=== PATIENT | female | born 1960 | race Caucasian/White ===

== ENCOUNTER → 2016-07-27 | Outpatient (CLI) | payer BC ==
--- NOTE | 2016-07-27 09:09 | CT ---
EXAMINATION TYPE: CT sinus wo con DATE OF EXAM: 07/27/2016 9:03 AM COMPARISON: NONE HISTORY: sinusitis CT DLP: 603.0 mGycm Automated exposure control for dose reduction was used. FINDINGS: Visualized intracranial structures are unremarkable. Soft tissues appear normal. There is been a previous Garcia-Judah procedure on the left. There is minimal mucoperiosteal thickeni ng involving the posterior aspect of the right maxillary sinus. There has been a previous partial thy roidectomy. There is some residual mucosal thickening in the ethmoid sinuses. Both infundibula have been iatrogenically widened. There are both patent. IMPRESSION: 1. POSTSURGICAL CHANGE. 2. MINIMAL MUCOPERIOSTEAL THICKENING INVOLVING THE RIGHT MAXILLARY AND RESIDUAL ETHMOID AIR CELLS.
== END | disposition home or self-care (01) ==
LOC: RADCTMAIN 08:43
PROVIDERS: ATTEND Nurse Practitioner Family
DX: J34.89 Other specified disorders of nose and nasal sinuses (principal); J32.9 Chronic sinusitis, unspecified; Z98.890 Other specified postprocedural states
CPT/HCPCS: 70486

== ENCOUNTER → 2016-10-29 | Outpatient (CLI) | payer BC ==
--- NOTE | 2016-10-30 12:00 | MM ---
Reason for exam: screening (asymptomatic). Last mammogram was performed 1 year ago. History: Patient is postmenopausal. Family history of breast cancer in paternal grandmother. Benign ultrasound-guided core biopsy of the left breast, September 01, 2004. Benign ultrasound-guided core biopsy of the left breast, September 01, 2004. Taking estrogen beginning at age 52. Physical Findings: A clinical breast exam by your physician is recommended on an annual basis and results should be correlated with mammographic findings. MG 3D Screening Mammo W/Cad Bilateral CC and MLO view(s) were taken. Prior study comparison: October 15, 2015, bilateral MG 3d screening mammo w/cad. August 21, 2014, bilateral MG screening mammo w CAD. The breast tissue is extremely dense which could obscure a lesion on mammography. There is no discrete abnormality. No significant changes when compared with prior studies. ASSESSMENT: Negative, BI-RAD 1 RECOMMENDATION: Routine screening mammogram of both breasts in 1 year.
== END | disposition home or self-care (01) ==
LOC: RADMAMWWP 16:55
PROVIDERS: ATTEND Obstetrics & Gynecology
DX: Z12.31 Encounter for screening mammogram for malignant neoplasm of breast (principal)
CPT/HCPCS: 77063; G0202

== ENCOUNTER → 2017-08-14 | Outpatient (CLI) | payer BC ==
[2017-08-14 09:53] LABS: ALT 24 U/L (9-52); AST 18 U/L (14-36); Albumin 3.8 g/dL (3.5-5.0); Alkaline Phosphatase 76 U/L (38-126); Anion Gap 10 mmol/L; Blood Urea Nitrogen 14 mg/dL (7-17); Calcium 9.3 mg/dL (8.4-10.2); Carbon Dioxide 27 mmol/L (22-30); Chloride 104 mmol/L (98-107); Cholesterol 213 mg/dL (<200); Glucose 88 mg/dL (74-99); HDL Cholesterol 63 mg/dL (40-60); LDL Cholesterol,Calculated 119 mg/dL (0-99); Potassium 4.3 mmol/L (3.5-5.1); Sodium 141 mmol/L (137-145); Total Bilirubin 0.4 mg/dL (0.2-1.3); Total Protein 6.5 g/dL (6.3-8.2); Triglycerides 153 mg/dL (<150)
[2017-08-14 10:09] LABS: T4, Free (Free Thyroxine) 0.85 ng/dL (0.78-2.19)
[2017-08-14 10:10] LABS: Basophils % (A) 1 %; Eosinophils # (A) 0.3 k/uL (0-0.7); Eosinophils % (A) 6 %; HCT 40.3 % (34.0-46.0); HGB 13.1 gm/dL (11.4-16.0); Lymphocytes # (A) 1.4 k/uL (1.0-4.8); Lymphocytes % (A) 26 %; MCH 28.3 pg (25.0-35.0); MCHC 32.6 g/dL (31.0-37.0); MCV 86.6 fL (80.0-100.0); Mean Platelet Volume 7.6; Monocytes # (A) 0.3 k/uL (0-1.0); Monocytes % (A) 5 %; Neutrophils # (A) 3.2 k/uL (1.3-7.7); Neutrophils % (A) 60 %; Platelet Count 281 k/uL (150-450); RBC 4.65 m/uL (3.80-5.40); RDW 12.1 % (11.5-15.5); WBC 5.3 k/uL (3.8-10.6)
== END ==
LOC: LABWHC1 08:55
PROVIDERS: ATTEND Internal Medicine
DX: E78.5 Hyperlipidemia, unspecified (principal)
CPT/HCPCS: 36415; 80053; 80061; 84439; 84443; 85025

== ENCOUNTER → 2017-12-02 | Outpatient (CLI) | payer BC ==
--- NOTE | 2017-12-06 13:00 | MM ---
Reason for exam: screening (asymptomatic). Last mammogram was performed 1 year and 1 month ago. History: Patient is postmenopausal. Family history of breast cancer in paternal grandmother. Benign ultrasound-guided core biopsy of the left breast, September 01, 2004. Benign ultrasound-guided core biopsy of the left breast, September 01, 2004. Taking estrogen for 6 years beginning at age 52. Physical Findings: A clinical breast exam by your physician is recommended on an annual basis and results should be correlated with mammographic findings. MG 3D Screening Mammo W/Cad Bilateral CC and MLO view(s) were taken. Prior study comparison: October 29, 2016, bilateral MG 3d screening mammo w/cad. October 15, 2015, bilateral MG 3d screening mammo w/cad. The breast tissue is heterogeneously dense. This may lower the sensitivity of mammography. There are benign appearing round oval circumscribed multiple bilateral masses waxing and waning in size over multiple prior exams. Mammographically most compatible with cysts. There are new 2mm group of left breast calcifications at middle depth lower inner quadrant. ASSESSMENT: Incomplete: need additional imaging evaluation, BI-RAD 0 RECOMMENDATION: Special view mammogram of the left breast. If lesion persists on supplemental views, image directed ultrasound is recommended. [facility] will attempt to contact patient to return for supplemental views and ultrasound if indicated.
== END | disposition home or self-care (01) ==
LOC: RADMAMWWP 17:06
PROVIDERS: ATTEND Family Medicine
DX: Z12.31 Encounter for screening mammogram for malignant neoplasm of breast (principal); Z80.3 Family history of malignant neoplasm of breast
CPT/HCPCS: 77063; 77067

== ENCOUNTER → 2017-12-09 | Outpatient (CLI) | payer BC ==
--- NOTE | 2017-12-09 09:46 | MM ---
Reason for exam: additional evaluation requested from abnormal screening. Last mammogram was performed less than 1 month ago. History: Patient is postmenopausal. Family history of breast cancer in paternal grandmother. Benign ultrasound-guided core biopsy of the left breast, September 01, 2004. Benign ultrasound-guided core biopsy of the left breast, September 01, 2004. Taking estrogen for 6 years beginning at age 52. Physical Findings: Nurse did not find any significant physical abnormalities on exam. MG Work Up Mamm w CAD LT Spot compression CC, spot compression MLO, and ML view(s) were taken of the left breast. Prior study comparison: October 29, 2016, bilateral MG 3d screening mammo w/cad. October 15, 2015, bilateral MG 3d screening mammo w/cad. There are scattered fibroglandular densities. The posterior upper outer quadrant focal asymmetry disperses on additional views. These results were verbally communicated with the patient and result sheet given to the patient on 12/08/17. ASSESSMENT: Negative, BI-RAD 1 RECOMMENDATION: Return to routine screening mammogram schedule for both breasts.
--- NOTE | 2017-12-14 08:41 | MM ---
Reason for exam: additional evaluation requested from abnormal screening. Last mammogram was performed 1 year and 1 month ago. History: Patient is postmenopausal. Family history of breast cancer in paternal grandmother. Benign ultrasound-guided core biopsy of the left breast, September 01, 2004. Benign ultrasound-guided core biopsy of the left breast, September 01, 2004. Taking estrogen for 6 years beginning at age 52. Physical Findings: Nurse did not find any significant physical abnormalities on exam. MG Work Up Mamm w CAD LT ML view(s) were taken of the left breast. Prior study comparison: October 29, 2016, bilateral MG 3d screening mammo w/cad. October 15, 2015, bilateral MG 3d screening mammo w/cad. August 21, 2014, bilateral MG screening mammo w CAD. There is persistant grouped amorphous hetergeneous calcifications in the lower middle left breast. These results were verbally communicated with the patient and result sheet given to the patient on 12/09/17. ASSESSMENT: Suspicious, BI-RAD 4 RECOMMENDATION: Stereotactic core biopsy of the left breast. Called Dr Collins with mammographic findings and has scheduled an appointment for 01/12/18 the patient for consultation at 3:50pm with Dr. Banegas. PRELIMINARY REPORT CALLED AND FAXED TO DR. BANEGAS ON 12/09/17 Left breast Stereotactic core biopsy scedualed for 12/19/17 at 10:00am at [facility].
== END | disposition home or self-care (01) ==
LOC: RADMAMWWP 07:00
PROVIDERS: ATTEND Family Medicine
DX: R92.8 Other abnormal and inconclusive findings on diagnostic imaging of breast (principal)
CPT/HCPCS: 77065

== ENCOUNTER → 2017-12-16 | Day surgery (SDC) | payer BC ==
[2017-12-16 09:35] VITALS: BMI 27.3
[2017-12-16 11:46] VITALS: BP 124/70; PULSE 67; RESP 16; TEMP 98
--- NOTE | 2017-12-16 14:55 | MM ---
EXAMINATION TYPE: MG stereo VAD BX LT DATE OF EXAM: 12/16/2017 COMPARISON: Exams dating back to 12/02/2017 CLINICAL HISTORY: Left breast calcifications for which stereotactic guided biopsy was recommended. TECHNIQUE: Stereotactic guided core biopsy of left breast. FINDINGS: The procedure of stereotactic guided core biopsy was explained to the patient. Benefits, a lternatives, and risks were discussed. An informed consent was then obtained. Preprocedural timeout was performed. [facility]. Shortness pathway was medial to lateral approach. Afte r skeleton. Images were obtained localizing the calcifications the patient was anesthetized with lido jayla without epinephrine at the skin surface and deeper subcutaneous tissues. The needle was advance d to the appropriate depth and prefire images were obtained. After firing 10 cc of lidocaine with epi nephrine was utilized to anesthetize the site of biopsy. Subsequently a vacuum assisted biopsy gun wa s used to obtain 9 core samples. Postprocedural biopsy marker was placed. The patient tolerated the procedure well without any immediate complication. The patient was kept in the radiology department for short stay after the procedure and then discharged home in stable condi tion. Targeted calcifications are identified in specimen mammogram. Post biopsy mammogram shows the biopsy marker to appear in satisfactory position relative to the targeted area of concern on the pre procedure images. IMPRESSION: SUCCESSFUL, UNCOMPLICATED STEREOTACTIC GUIDED CORE BIOPSY OF A 5 MM GROUP OF CALCIFICATIONS WITHIN TH E LOWER QUADRANT OF THE LEFT BREAST, POSSIBLY FAT NECROSIS, FULL PATHOLOGY RESULTS TO FOLLOW.
== END ==
LOC: RADMAMWWP 09:06
PROVIDERS: ATTEND Surgery
DX: N60.22 Fibroadenosis of left breast (principal); R92.8 Other abnormal and inconclusive findings on diagnostic imaging of breast; R92.1 Mammographic calcification found on diagnostic imaging of breast; Z88.5 Allergy status to narcotic agent
CPT/HCPCS: 88305; 19081; A4648; J2001

== ENCOUNTER → 2018-07-15 | Outpatient (CLI) | payer BC ==
--- NOTE | 2018-07-15 10:16 | MM ---
Reason for exam: follow-up at short interval from prior study. Last mammogram was performed 7 months ago. History: Patient is postmenopausal. Family history of breast cancer in paternal grandmother. Benign MG stereo VAD BX LT of the left breast, December 16, 2017. Benign ultrasound-guided core biopsy of the left breast, September 01, 2004. Benign ultrasound-guided core biopsy of the left breast, September 01, 2004. Taking estrogen for 6 years beginning at age 52. Physical Findings: Nurse Summary: 1cm nodule in the left breast at 6 o'clock (nurse dw). MG 3D Diag Mammo W/Cad LT CC and MLO view(s) were taken of the left breast. Prior study comparison: December 14, 2017, left breast MG work up mamm w CAD LT. December 02, 2017, bilateral MG 3d screening mammo w/cad. The breast tissue is heterogeneously dense. This may lower the sensitivity of mammography. No significant new findings when compared with previous films. These results were verbally communicated with the patient and result sheet given to the patient on 07/15/18. ASSESSMENT: Incomplete: need additional imaging evaluation, BI-RAD 0 RECOMMENDATION: Ultrasound of the left breast.
--- NOTE | 2018-07-15 10:17 | USB ---
Reason for exam: additional evaluation requested from abnormal screening. History: Patient is postmenopausal. Family history of breast cancer in paternal grandmother. Benign MG stereo VAD BX LT of the left breast, December 16, 2017. Benign ultrasound-guided core biopsy of the left breast, September 01, 2004. Benign ultrasound-guided core biopsy of the left breast, September 01, 2004. Taking estrogen for 6 years beginning at age 52. US Breast Limited LT Left limited breast ultrasound including focal area of concern, retroareolar and axilla demonstrates a 1.1 x 1.2 x 0.8cm cystic lesion at 6 o'clock. These results were verbally communicated with the patient and result sheet given to the patient on 07/15/18. ASSESSMENT: Benign, BI-RAD 2 RECOMMENDATION: Return to routine screening mammogram schedule for both breasts.
== END | disposition home or self-care (01) ==
LOC: RADMAMWWP 08:50
PROVIDERS: ATTEND Surgery
DX: R92.8 Other abnormal and inconclusive findings on diagnostic imaging of breast (principal)
CPT/HCPCS: 77061; 77065

== ENCOUNTER → 2018-12-20 | Outpatient (CLI) | payer BC ==
--- NOTE | 2018-12-22 09:51 | MM ---
Reason for exam: screening (asymptomatic). Last mammogram was performed 5 months ago. History: Patient is postmenopausal. Family history of breast cancer in paternal grandmother. Benign MG stereo VAD BX LT of the left breast, December 16, 2017. Benign ultrasound-guided core biopsy of the left breast, September 01, 2004. Benign ultrasound-guided core biopsy of the left breast, September 01, 2004. Taking estrogen for 6 years beginning at age 52. Physical Findings: A clinical breast exam by your physician is recommended on an annual basis and results should be correlated with mammographic findings. MG 3D Screening Mammo W/Cad Bilateral CC and MLO view(s) were taken. Prior study comparison: July 15, 2018, left breast MG 3d diag mammo w/cad LT. December 14, 2017, left breast MG work up mamm w CAD LT. The breast tissue is extremely dense which could obscure a lesion on mammography. Previous mammotome biopsy in the left breast. ASSESSMENT: Incomplete: need additional imaging evaluation, BI-RAD 0 RECOMMENDATION: Ultrasound of the left breast. [facility] will attempt to contact patient to return for ultrasound.
== END | disposition home or self-care (01) ==
LOC: RADMAMWWP 17:00
PROVIDERS: ATTEND Obstetrics & Gynecology
DX: Z12.31 Encounter for screening mammogram for malignant neoplasm of breast (principal); Z80.3 Family history of malignant neoplasm of breast; Z78.0 Asymptomatic menopausal state
CPT/HCPCS: 77063; 77067

== ENCOUNTER → 2018-12-29 | Outpatient (CLI) | payer BC ==
--- NOTE | 2018-12-29 13:25 | USB ---
Reason for exam: additional evaluation requested from abnormal screening. History: Patient is postmenopausal. Family history of breast cancer in paternal grandmother. Benign MG stereo VAD BX LT of the left breast, December 16, 2017. Benign ultrasound-guided core biopsy of the left breast, September 01, 2004. Benign ultrasound-guided core biopsy of the left breast, September 01, 2004. Taking estrogen for 6 years beginning at age 52. Physical Findings: Nurse did not find any significant physical abnormalities on exam. US Breast Workup LT Left complete breast ultrasound includes all four quadrants, the retroareolar region and axilla. Finding demonstrates a 0.8 x 0.6 x 1.0cm cystic cluster at 3 o'clock, a 0.7 x 0.4 x 0.5cm cystic cluster at 4 o'clock, a 0.7 x 0.4 x 0.6cm cystic lesion at 6 o'clock, a 0.6 x 0.3 x 0.5cm mixed, complicated cyst at 9 o'clock and duct ectasia at the posterior nipple. These results were verbally communicated with the patient and result sheet given to the patient on 12/29/18. ASSESSMENT: Incomplete: need additional imaging evaluation, BI-RAD 0 RECOMMENDATION: Special view mammogram of the left breast. (magnification views, lateral)
--- NOTE | 2018-12-29 13:27 | MM ---
Reason for exam: additional evaluation requested from abnormal screening. Last mammogram was performed less than 1 month ago. History: Patient is postmenopausal. Family history of breast cancer in paternal grandmother. Benign MG stereo VAD BX LT of the left breast, December 16, 2017. Benign ultrasound-guided core biopsy of the left breast, September 01, 2004. Benign ultrasound-guided core biopsy of the left breast, September 01, 2004. Taking estrogen for 6 years beginning at age 52. MG 3D Work Up W/Cad LT CC with magnification, LM with magnification, and LM view(s) were taken of the left breast. Prior study comparison: December 20, 2018, bilateral MG 3d screening mammo w/cad. July 15, 2018, left breast MG 3d diag mammo w/cad LT. The breast tissue is heterogeneously dense. This may lower the sensitivity of mammography. There are two adjacent calcifications not yet a true group, one of which is new. These are seen in the left upper inner quadrant, 6cm from nipple spanning 5mm. 6 month follow up recommended. These results were verbally communicated with the patient and result sheet given to the patient on 12/29/18. ASSESSMENT: Probably benign, BI-RAD 3 RECOMMENDATION: Follow-up diagnostic mammogram of the left breast in 6 months.
== END | disposition home or self-care (01) ==
LOC: RADUSWWP 10:08
PROVIDERS: ATTEND Obstetrics & Gynecology
DX: R92.8 Other abnormal and inconclusive findings on diagnostic imaging of breast (principal)
CPT/HCPCS: 77061; 77065

== ENCOUNTER → 2019-05-13 | Outpatient (CLI) | payer BC ==
[2019-05-13 08:45] LABS: Basophils # (A) 0.1 k/uL (0-0.2); Basophils % (A) 1 %; Eosinophils # (A) 0.2 k/uL (0-0.7); Eosinophils % (A) 3 %; HCT 41.6 % (34.0-46.0); HGB 13.6 gm/dL (11.4-16.0); Lymphocytes # (A) 1.9 k/uL (1.0-4.8); Lymphocytes % (A) 32 %; MCH 29.2 pg (25.0-35.0); MCHC 32.7 g/dL (31.0-37.0); MCV 89.5 fL (80.0-100.0); Mean Platelet Volume 7.4; Monocytes # (A) 0.3 k/uL (0-1.0); Monocytes % (A) 6 %; Neutrophils # (A) 3.3 k/uL (1.3-7.7); Neutrophils % (A) 56 %; Platelet Count 310 k/uL (150-450); RBC 4.65 m/uL (3.80-5.40); RDW 12.3 % (11.5-15.5); WBC 5.9 k/uL (3.8-10.6)
[2019-05-13 17:49] LABS: African American GFR (CKD) 110.7 (60.0-200.0); Albumin 4.5 g/dL (3.80-4.90); Albumin/Globulin Ratio 2.25 (1.60-3.17); Anion Gap 8.3 mmol/L (4.00-12.00); BUN/Creat Ratio 24.29 Ratio (12.00-20.00); Calcium 9.2 mg/dL (8.7-10.3); Carbon Dioxide 26.7 mmol/L (21.6-31.8); Chol/HDL Ratio 3.24; LDL Cholesterol,Calculated 136.4 mg/dL (0.0-131.0); Non-African American GFR(CKD) 95.5 (60.0-200.0); Total Bilirubin 0.4 mg/dL (0.3-1.2); Total Protein 6.5 g/dL (6.2-8.2); VLDL Calculation 24.6 mg/dL (5.00-40.00)
== END ==
LOC: LABWHC1 08:06
PROVIDERS: ATTEND Internal Medicine
DX: Z00.00 Encounter for general adult medical examination without abnormal findings (principal)
CPT/HCPCS: 36415; 80053; 80061; 84439; 84443; 85025

== ENCOUNTER → 2019-10-02 | Outpatient (CLI) | payer BC ==
--- NOTE | 2019-10-03 10:24 | MM ---
Reason for exam: follow-up at short interval from prior study. Last mammogram was performed 9 months ago. History: Patient is postmenopausal and history of other cancer. Family history of breast cancer in paternal grandmother. Benign MG stereo VAD BX LT of the left breast, December 16, 2017. Benign ultrasound-guided core biopsy of the left breast, September 01, 2004. Benign ultrasound-guided core biopsy of the left breast, September 01, 2004. Taking estrogen for 6 years beginning at age 52. Physical Findings: Nurse did not find any significant physical abnormalities on exam. MG 3D Diag Mammo W/Cad LT CC and MLO view(s) were taken of the left breast. Prior study comparison: December 29, 2018, left breast MG 3d work up w/cad LT. December 20, 2018, bilateral MG 3d screening mammo w/cad. July 15, 2018, left breast MG 3d diag mammo w/cad LT. December 02, 2017, bilateral MG 3d screening mammo w/cad. The breast tissue is heterogeneously dense. This may lower the sensitivity of mammography. Unchanged upper inner quadrant focal asymmetry. Two associated calcifications unchanged for 9 months. Continued short follow up. Due in 3 months for annual exam. These results were verbally communicated with the patient and result sheet given to the patient on 10/02/19. ASSESSMENT: Probably benign, BI-RAD 3 RECOMMENDATION: Follow-up diagnostic mammogram of both breasts in 3 months. (left total 1 year follow up, right annual exam)
== END | disposition home or self-care (01) ==
LOC: RADMAMWWP 09:20
PROVIDERS: ATTEND Obstetrics & Gynecology
DX: R92.8 Other abnormal and inconclusive findings on diagnostic imaging of breast (principal)
CPT/HCPCS: 77061; 77065

== ENCOUNTER 2019-10-12 10:33 | Observation (INO) | payer BC ==
--- NOTE | 2019-10-12 11:03 | ED ---
General Adult HPI - General Chief complaint: Weakness Stated complaint: abn EKG Time Seen by Provider: 10/12/19 10:44 Source: patient, RN notes reviewed, old records reviewed Mode of arrival: wheelchair Limitations: no limitations - History of Present Illness Initial comments: 59 -year-old female presenting with weakness, fatigue, and abnormal EKG. Daisha lemon was seen at urgent care, noted to have a left bundle branch block, no history of previous left bundle branch block. No history of CAD. She is history of hypercholesterolemia. She denies chest pain but states over the past several days she's been fatigued and had bilateral arm heaviness. She states she thought this may have been from her neck and she had seen her chiropractor which did seem to improve her symptoms. She denies diaphoresis. She denies abdominal pain. Denies nausea vomiting or diarrhea. Denies dysuria. Denies fever or chills. - Related Data Home Medications Medication Instructions Recorded Confirmed Fluticasone Nasal [place] [Flonase 1 spray NASAL DAILY 12/14/17 10/12/19 Nasal [place]] Omeprazole 20 mg PO DAILY 12/14/17 10/12/19 Estrogens, Conjugated [Premarin] 0.45 mg PO DAILY 10/12/19 10/12/19 Fexofenadine HCl 180 mg PO DAILY 10/12/19 10/12/19 Naproxen Sodium [Aleve] 220 mg PO BID 10/12/19 10/12/19 Simvastatin [Zocor] 20 mg PO HS 10/12/19 10/12/19 Allergies Allergy/AdvReac Type Severity Reaction Status Date / Time codeine AdvReac Nausea & Verified 10/12/19 11:42 Vomiting Review of Systems ROS Statement: Those systems with pertinent positive or pertinent negative responses have been documented in the HPI. ROS Other: All systems not noted in ROS Statement are negative. Past Medical History Past Medical History: Hyperlipidemia Additional Past Medical History / Comment(s): seasonal allergies History of Any Multi-Drug Resistant Organisms: None Reported Past Surgical History: Hysterectomy Additional Past Surgical History / Comment(s): benign u/s guided core biopsy left breast 2004 Past Anesthesia/Blood Transfusion Reactions: No Reported Reaction Past Psychological History: No Psychological Hx Reported Smoking Status: Never smoker Past Alcohol Use History: None Reported Past Drug Use History: None Reported General Exam Limitations: no limitations General appearance: alert, in no apparent distress Head exam: Present: atraumatic, normocephalic Eye exam: Present: normal appearance, PERRL ENT exam: Present: normal exam Neck exam: Present: normal inspection. Absent: tenderness, meningismus Respiratory exam: Present: normal lung sounds bilaterally. Absent: respiratory distress, wheezes Cardiovascular Exam: Present: regular rate, normal rhythm GI/Abdominal exam: Present: soft. Absent: distended, tenderness, guarding Extremities exam: Present: normal inspection, normal capillary refill. Absent: pedal edema Back exam: Present: normal inspection, full ROM Neurological exam: Present: alert, oriented X3, CN II-XII intact. Absent: motor sensory deficit Psychiatric exam: Present: normal affect, normal mood Skin exam: Present: warm, dry, intact. Absent: cyanosis, diaphoretic Course Vital Signs 10/12/19 10/12/19 10/12/19 10:41 10:58 10:59 Temperature 98.1 F Pulse Rate 77 84 83 Respiratory 16 16 18 Rate Blood Pressure 169/87 154/98 154/88 O2 Sat by Pulse 99 100 99 Oximetry EKG Findings - EKG Comments: EKG Findings:: EKG: Normal sinus rhythm, left bundle branch block, rate of 78, UT interval 152, QRS duration 140, QTC 483 Medical Decision Making - Medical Decision Making 59-year-old female with bilateral arm heaviness, EKG showing left bundle branch block with no known history of left bundle branch block. There is concern for ACS given the symptoms and EKG findings. Workup is initiated for both chest pain as well as concern for cervical radiculopathy. CT of the brain negative for intracranial hemorrhage or mass effect, CT cervical spine showing C5-C6 foraminal stenosis, may be the determining factor to her so arm symptoms. CBC, CMP are unremarkable, negative initial troponin. Given the patient's age and these new EKG findings, she will be placed in observation for echo, serial cardiac enzymes, telemetry, and cardiology consultation. Case is discussed with Dr. Ro who will admit - Lab Data Result diagrams: 10/12/19 10:54 10/12/19 10:54 Lab Results 10/12/19 10/12/19 10/12/19 Range/Units 10:51 10:54 10:54 WBC 8.8 (3.8-10.6) k/uL RBC 5.03 (3.80-5.40) m/uL Hgb 14.3 (11.4-16.0) gm/dL Hct 44.6 (34.0-46.0) % MCV 88.6 (80.0-100.0) fL MCH 28.3 (25.0-35.0) pg MCHC 32.0 (31.0-37.0) g/dL RDW 12.5 (11.5-15.5) % Plt Count 263 (150-450) k/uL Neutrophils % 78 % Lymphocytes % 15 % Monocytes % 5 % Eosinophils % 1 % Basophils % 0 % Neutrophils # 6.9 (1.3-7.7) k/uL Lymphocytes # 1.3 (1.0-4.8) k/uL Monocytes # 0.5 (0-1.0) k/uL Eosinophils # 0.0 (0-0.7) k/uL Basophils # 0.0 (0-0.2) k/uL PT 9.7 (9.0-12.0) sec INR 0.9 (<1.2) APTT 23.8 (22.0-30.0) sec Sodium (137-145) mmol/L Potassium (3.5-5.1) mmol/L Chloride (98-107) mmol/L Carbon Dioxide (22-30) mmol/L Anion Gap mmol/L BUN (7-17) mg/dL Creatinine (0.52-1.04) mg/dL Est GFR (CKD-EPI)AfAm (>60 ml/min/1.73 sqM) Est GFR (CKD-EPI)NonAf (>60 ml/min/1.73 sqM) Glucose (74-99) mg/dL Plasma Lactic Acid [place] (0.7-2.0) mmol/L Calcium (8.4-10.2) mg/dL Magnesium (1.6-2.3) mg/dL Total Bilirubin (0.2-1.3) mg/dL AST (14-36) U/L ALT (4-34) U/L Alkaline Phosphatase (38-126) U/L Troponin I (0.000-0.034) ng/mL NT-Pro-B Natriuret Pep pg/mL Total Protein (6.3-8.2) g/dL Albumin (3.5-5.0) g/dL Urine Color Colorless Urine Appearance Clear (Clear) Urine pH 6.0 (5.0-8.0) Ur Specific [place] 1.003 (1.001-1.035) Urine Protein Negative (Negative) Urine Glucose (UA) Negative (Negative) Urine Ketones Negative (Negative) Urine Blood Negative (Negative) Urine Nitrite Negative (Negative) Urine Bilirubin Negative (Negative) Urine Urobilinogen <2.0 (<2.0) mg/dL Ur Leukocyte Esterase Negative (Negative) 10/12/19 10/12/19 10/12/19 Range/Units 10:54 10:54 10:54 WBC (3.8-10.6) k/uL RBC (3.80-5.40) m/uL Hgb (11.4-16.0) gm/dL Hct (34.0-46.0) % MCV (80.0-100.0) fL MCH (25.0-35.0) pg MCHC (31.0-37.0) g/dL RDW (11.5-15.5) % Plt Count (150-450) k/uL Neutrophils % % Lymphocytes % % Monocytes % % Eosinophils % % Basophils % % Neutrophils # (1.3-7.7) k/uL Lymphocytes # (1.0-4.8) k/uL Monocytes # (0-1.0) k/uL Eosinophils # (0-0.7) k/uL Basophils # (0-0.2) k/uL PT (9.0-12.0) sec INR (<1.2) APTT (22.0-30.0) sec Sodium 139 (137-145) mmol/L Potassium 3.7 (3.5-5.1) mmol/L Chloride 105 (98-107) mmol/L Carbon Dioxide 25 (22-30) mmol/L Anion Gap 9 mmol/L BUN 9 (7-17) mg/dL Creatinine 0.59 (0.52-1.04) mg/dL Est GFR (CKD-EPI)AfAm >90 (>60 ml/min/1.73 sqM) Est GFR (CKD-EPI)NonAf >90 (>60 ml/min/1.73 sqM) Glucose 113 H (74-99) mg/dL Plasma Lactic Acid [place] 1.1 (0.7-2.0) mmol/L Calcium 9.7 (8.4-10.2) mg/dL Magnesium 1.9 (1.6-2.3) mg/dL Total Bilirubin 0.6 (0.2-1.3) mg/dL AST 23 (14-36) U/L ALT 17 (4-34) U/L Alkaline Phosphatase 61 (38-126) U/L Troponin I <0.012 (0.000-0.034) ng/mL NT-Pro-B Natriuret Pep pg/mL Total Protein 7.4 (6.3-8.2) g/dL Albumin 4.6 (3.5-5.0) g/dL Urine Color Urine Appearance (Clear) Urine pH (5.0-8.0) Ur Specific [place] (1.001-1.035) Urine Protein (Negative) Urine Glucose (UA) (Negative) Urine Ketones (Negative) Urine Blood (Negative) Urine Nitrite (Negative) Urine Bilirubin (Negative) Urine Urobilinogen (<2.0) mg/dL Ur Leukocyte Esterase (Negative) 10/12/19 Range/Units 10:54 WBC (3.8-10.6) k/uL RBC (3.80-5.40) m/uL Hgb (11.4-16.0) gm/dL Hct (34.0-46.0) % MCV (80.0-100.0) fL MCH (25.0-35.0) pg MCHC (31.0-37.0) g/dL RDW (11.5-15.5) % Plt Count (150-450) k/uL Neutrophils % % Lymphocytes % % Monocytes % % Eosinophils % % Basophils % % Neutrophils # (1.3-7.7) k/uL Lymphocytes # (1.0-4.8) k/uL Monocytes # (0-1.0) k/uL Eosinophils # (0-0.7) k/uL Basophils # (0-0.2) k/uL PT (9.0-12.0) sec INR (<1.2) APTT (22.0-30.0) sec Sodium (137-145) mmol/L Potassium (3.5-5.1) mmol/L Chloride (98-107) mmol/L Carbon Dioxide (22-30) mmol/L Anion Gap mmol/L BUN (7-17) mg/dL Creatinine (0.52-1.04) mg/dL Est GFR (CKD-EPI)AfAm (>60 ml/min/1.73 sqM) Est GFR (CKD-EPI)NonAf (>60 ml/min/1.73 sqM) Glucose (74-99) mg/dL Plasma Lactic Acid [place] (0.7-2.0) mmol/L Calcium (8.4-10.2) mg/dL Magnesium (1.6-2.3) mg/dL Total Bilirubin (0.2-1.3) mg/dL AST (14-36) U/L ALT (4-34) U/L Alkaline Phosphatase (38-126) U/L Troponin I (0.000-0.034) ng/mL NT-Pro-B Natriuret Pep 138 pg/mL Total Protein (6.3-8.2) g/dL Albumin (3.5-5.0) g/dL Urine Color Urine Appearance (Clear) Urine pH (5.0-8.0) Ur Specific [place] (1.001-1.035) Urine Protein (Negative) Urine Glucose (UA) (Negative) Urine Ketones (Negative) Urine Blood (Negative) Urine Nitrite (Negative) Urine Bilirubin (Negative) Urine Urobilinogen (<2.0) mg/dL Ur Leukocyte Esterase (Negative) Disposition Clinical Impression: Bundle branch block, left, Anginal equivalent Disposition: ADMITTED IP TO THIS [facility] Condition: Stable Is patient prescribed a controlled substance at d/c from ED?: No Referrals: Dorene Hernandez MD [Primary Care Provider] - 1-2 days Decision to Admit Reason: Admit from EC Decision Date: 10/12/19 Decision Time: 12:38
[2019-10-12 11:11] LABS: Basophils % (A) 0 %; Eosinophils % (A) 1 %; HCT 44.6 % (34.0-46.0); HGB 14.3 gm/dL (11.4-16.0); Lymphocytes # (A) 1.3 k/uL (1.0-4.8); Lymphocytes % (A) 15 %; MCH 28.3 pg (25.0-35.0); MCV 88.6 fL (80.0-100.0); Mean Platelet Volume 7.6; Monocytes # (A) 0.5 k/uL (0-1.0); Monocytes % (A) 5 %; Neutrophils # (A) 6.9 k/uL (1.3-7.7); Neutrophils % (A) 78 %; Platelet Count 263 k/uL (150-450); RBC 5.03 m/uL (3.80-5.40); RDW 12.5 % (11.5-15.5); WBC 8.8 k/uL (3.8-10.6)
[2019-10-12 11:19] LABS: ALT 17 U/L (4-34); AST 23 U/L (14-36); African American GFR (CKD) >90 (>60 ml/min/1.73 sqM); Albumin 4.6 g/dL (3.5-5.0); Alkaline Phosphatase 61 U/L (38-126); Anion Gap 9 mmol/L; Blood Urea Nitrogen 9 mg/dL (7-17); Calcium 9.7 mg/dL (8.4-10.2); Carbon Dioxide 25 mmol/L (22-30); Chloride 105 mmol/L (98-107); Glucose 113 mg/dL (74-99); Magnesium 1.9 mg/dL (1.6-2.3); Non-African American GFR(CKD) >90 (>60 ml/min/1.73 sqM); Potassium 3.7 mmol/L (3.5-5.1); Sodium 139 mmol/L (137-145); Total Bilirubin 0.6 mg/dL (0.2-1.3); Total Protein 7.4 g/dL (6.3-8.2)
[2019-10-12 11:25] LABS: Appearance,Urine Clear (Clear); Bilirubin,Urine Negative (Negative); Blood,Urine Negative (Negative); Color,Urine Colorless; Glucose,Urine (UA) Negative (Negative); Ketones,Urine Negative (Negative); Leukocyte Esterase,Urine Negative (Negative); Nitrite,Urine Negative (Negative); Protein,Urine Negative (Negative); Specific Gravity,Urine 1.003 (1.001-1.035); Urobilinogen,Urine <2.0 mg/dL (<2.0)
--- NOTE | 2019-10-12 11:45 | XR ---
EXAMINATION TYPE: XR chest 2V DATE OF EXAM: 10/12/2019 COMPARISON: NONE TECHNIQUE: PA and lateral views submitted. HISTORY: Weakness FINDINGS: The lungs are clear and there is no pneumothorax, pleural effusion, or focal pneumonia. No overt fa ilure. Hypertrophic and degenerative change of the spine. Mild hyperinflation correlate for COPD. Bor derline cardiomegaly. IMPRESSION: 1. No acute process.
[2019-10-12 11:46] LABS: INR 0.9 (<1.2); Partial Thromboplastin Time 23.8 sec (22.0-30.0); Prothrombin Time 9.7 sec (9.0-12.0)
--- NOTE | 2019-10-12 11:46 | CT ---
EXAMINATION TYPE: CT brain dianneine wo con DATE OF EXAM: 10/12/2019 COMPARISON: None HISTORY: 59-year-old female Bilateral arm numbness CT DLP: 1271.8 mGycm Automated exposure control for dose reduction was used. Technique: Examination of the head was done in axial plane without intravenous contrast. Coronal and sagittal reconstructions performed. CT of the cervical spine was obtained in axial plane without intravenous injection of contrast mater ial. Coronal and sagittal reformatted images were obtained from the axial views for evaluation of f ractures, spinal alignment and canal. FINDINGS: Head: There is no evidence of acute intracranial hemorrhage, acute ischemic changes, mass, mass-effect, or extra-axial fluid collection. There is no effacement of cerebral sulci or basal subarachnoid cister ns. There is no hydrocephalus. There is no midline shift. Juárez-white matter distinction is preserv ed. Paranasal sinuses and mastoid air cells well pneumatized. Orbits and globes are intact. Cervical spine: No cranial cervical junction abnormality, predental space, or prevertebral soft tissue swelling. Preserved alignment of the cervical spine. No acute fracture is seen. Moderate disc/endplate degenerative change C5-C7 levels. Advanced hypertrophic facet arthropathy towards the right at C2-C3. Uncovertebral joint arthropathy l ower cervical spine. Mild bilateral neuroforaminal stenosis at C5-C6. Assessment of the spinal canal limited from C5 and below due to artifact from patient's shoulders. Sagittal and coronal reformatted images confirm above findings. COMBINED IMPRESSION: 1. No acute intracranial abnormality seen. 2. No acute fracture or malalignment of the cervical spine. Moderate spondylotic changes especially f rom C5 through C7 levels. Mild bilateral neural foraminal stenosis at C5-C6.
[2019-10-12] MEDS ORDERED: ASPIRIN 325 MG TAB PO STA (12:35)
[2019-10-12] MEDS ORDERED: ACETAMINOPHEN TAB 325 MG TAB PO PRN (12:39)
[2019-10-12] MEDS ORDERED: IBUPROFEN 400 MG TAB PO PRN (12:39)
[2019-10-12] MEDS ORDERED: NALOXONE 0.4 MG/ML 1 ML VIAL IV PRN ×2 (12:39→15:05)
--- NOTE | 2019-10-12 15:10 | P.CNPUL ---
History of Present Illness Consult date: 10/12/19 Reason for consult: other (Fatigue) Chief complaint: Weakness History of present illness: This is a 59-year-old female, familiar to my service, known history of ALLERGIC rhinitis, GERD, hypercholesterolemia, degenerative joint disease, history of mitral valve prolapse, No significant past medical history otherwise. Her was recently diagnosed with glioblastoma, and the patient has been under significant amount of stress recently. Patient presented to the walk-in clinic complaining of weakness and fatigue, describes the weakness as mostly weakness in the upper extremities, tires out easily, and significantly fatigued. Workup was done including an EKG which came back showing left bundle branch block pat tern. Patient had no previous history of coronary artery disease, no previous episodes of chest pain or angina. Patient stated to the urgent care physician that she has been fatigued and complaining of bilateral arm heaviness for the last few days. Has been seeing a chiropractor for severe back pain, and has not been improving much. Considering her abnormal EKG and her cousin seashell symptoms, patient was sent to the ER. CBC, complete metabolic profile, troponin, urinalysis, all came back relatively unremarkable. Patient was admitted for observation. In the meantime CT of the head and cervical spine was done, and it showed no acute intracranial abnormality it showed moderate spondylotic changes especially from C5 through C7 and mild bilateral neural foraminal stenosis at C5-C6. Patient denies any history of connective tissue disease process, no history of myositis, no history of connective tissue disease, history of hypo-or hyperthyroidism, and in no history of myasthenia gravis. Review of Systems Constitutional: As noted in HPI, mostly weakness and fatigue for the last several days. HEENT: Mostly symptoms of neck pain, being followed by chiropractor, manipulation has not been helpful much. Pulmonary: No cough no wheezing no shortness of breath. Cardiac: Denies any chest pain, no palpitations, no diaphoresis, no syncope. GI: Denies any nausea vomiting abdominal pain melena or hematemesis. Genitourinary: Denies any dysuria frequency urgency or hematuria. Musculoskeletal: As noted in HPI, mostly weakness and heaviness in both upper extremities and lower extremities but more so in the upper extremities. Skin: No rashes. No pruritus. Endocrine: Denies any symptoms of heat or cold intolerance. Neurologic: As noted in HPI. Hematologic: No clotting bleeding or bruising. Psychiatric: Denies any symptoms of depression, however been under stress recently with her recent diagnosis of her with a glioblastoma. Past Medical History Past Medical History: Hyperlipidemia Additional Past Medical History / Comment(s): seasonal allergies History of Any Multi-Drug Resistant Organisms: None Reported Past Surgical History: Hysterectomy Additional Past Surgical History / Comment(s): benign u/s guided core biopsy left breast 2004 Past Anesthesia/Blood Transfusion Reactions: No Reported Reaction Past Psychological History: No Psychological Hx Reported Smoking Status: Never smoker Past Alcohol Use History: None Reported Past Drug Use History: None Reported Medications and Allergies Home Medications Medication Instructions Recorded Confirmed Type Fluticasone Nasal [place] [Flonase 1 spray NASAL DAILY 12/14/17 10/12/19 History Nasal [place]] Omeprazole 20 mg PO DAILY 12/14/17 10/12/19 History Estrogens, Conjugated [Premarin] 0.45 mg PO DAILY 10/12/19 10/12/19 History Fexofenadine HCl 180 mg PO DAILY 10/12/19 10/12/19 History Naproxen Sodium [Aleve] 220 mg PO BID 10/12/19 10/12/19 History Simvastatin [Zocor] 20 mg PO HS 10/12/19 10/12/19 History Allergies Allergy/AdvReac Type Severity Reaction Status Date / Time codeine AdvReac Nausea & Verified 10/12/19 11:42 Vomiting Physical Exam Vitals: Vital Signs Temp Pulse Pulse Resp BP BP Pulse Ox 10/12/19 13:35 97.7 F 70 12 146/87 99 10/12/19 12:48 76 18 153/94 98 10/12/19 10:59 83 18 154/88 99 10/12/19 10:58 84 16 154/98 100 10/12/19 10:41 98.1 F 77 16 169/87 99 Intake and Output 10/11/19 10/12/19 10/12/19 22:59 06:59 14:59 Other: Weight 74.843 kg Physical Exam: Revealed 59-year-old female pleasant in no distress. Head: Atraumatic normocephalic. HEENT:[Neck is supple.] [No neck masses.] [No thyromegaly.] [No JVD.] PERRLA, EOMI, no icterus. Chest: [Clear throughout, no crackles, no rhonchi, no wheezes.] Cardiac Exam: [Normal S1 and S2, no S3 gallop, 2/6 murmur heard at the apical area. Abdomen: [Soft, nontender, no megaly, no rebound, no guarding, normal bowel sounds.] Extremities: [No clubbing, no edema, no cyanosis.] Neurological Exam: [No focal neurologic deficit.] No gross focal neurologic deficits. Musculoskeletal: No focal weakness no deformities noted limitation in range of motion. Skin: No rashes. Psychiatric: Normal mood affect and normal mental status examination Results - Laboratory Findings CBC and BMP: 10/12/19 10:54 10/12/19 10:54 PT/INR, D-dimer PT 9.7 sec (9.0-12.0) 10/12/19 10:54 INR 0.9 (<1.2) 10/12/19 10:54 Abnormal lab findings: Abnormal Labs 10/12/19 10:54 Glucose 113 H - Diagnostic Findings Chest x-ray: report reviewed, image reviewed (As noted in HPI.) Additional studies: CT of the head and cervical spine noted as noted in HPI Assessment and Plan Assessment: Impression: Symptoms of proximal muscle weakness, exact etiology is not clear, workup is in progress, I recommended workup for connective tissue disease, myositis, and workup for myasthenia gravis. We'll also add thyroid studies. Symptoms of chronic cervical spine pain related to degenerative disc disease. Doubt relationship between her cervical pain and proximal muscle symptoms. How ever will initiate a consultation with Dr. Loving Abnormal EKG, left bundle branch block pattern, however the patient had no previous history of coronary artery disease or OR, and no old EKG for compar rena. We'll try to retrieve if she had EKG at cardiology many years ago. And a cardiac consultation was already initiated. Seasonal ALLERGIC rhinitis. Maintained on nasal sprays. Degenerative joint disease maintained on Aleve. Pure hypercholesterolemia. GERD without esophagitis, on omeprazole. Recommendation: Agree with the present treatment plan, We will request workup for possible myositis, and workup for myasthenia gravis as well as hypothyroidism. Cardiology to see and may require at least a stress test. And hopefully an EKG is available in the office from previous encounter. Observation overnight, Consider discharge planning in the next 24 hours. Resume home meds. We'll continue to follow Time with Patient: Greater than 30
[2019-10-12 15:11] LABS: C Reactive Protein <5.0 mg/L (<10.0); Creatine Kinase 160 U/L (30-135)
--- NOTE | 2019-10-12 15:12 | P.HPIM ---
History of Present Illness H&P Date: 10/12/19 Chief Complaint: Weakness 59 -year-old female presenting with weakness, fatigue, and abnormal EKG. Patient was seen at urgent care, noted to have a left bundle branch block. Last time she had an EKG was long time ago and does not remember having such finding in the past. No history of CAD. She is history of hypercholesterolemia. She denies chest pain but states over the past several days she's been fatigued and had bilateral arm heaviness. No sob. She thought her symptoms were coming from chronic degenerative disease in the neck, saw her chiropractor yesterday and her symptoms improved. No nausea, vomiting or diaphoresis. She denies abdominal pain. Denies nausea vomiting or diarrhea. Denies dysuria. Denies fever or chills. Of note patient has been having a lot of stress lately due to recent cancer diagnosis for her . In the ER CXR, initial troponin and labs were all ok. EKG as above showed LBBB, she was admitted due to that in order to be evaluated by cardiology. Review of Systems Complete ROS performed, pertinent positives per HPI other garcía negative. Past Medical History Past Medical History: Hyperlipidemia Additional Past Medical History / Comment(s): seasonal allergies History of Any Multi-Drug Resistant Organisms: None Reported Past Surgical History: Hysterectomy Additional Past Surgical History / Comment(s): benign u/s guided core biopsy left breast 2004 Past Anesthesia/Blood Transfusion Reactions: No Reported Reaction Past Psychological History: No Psychological Hx Reported Smoking Status: Never smoker Past Alcohol Use History: None Reported Past Drug Use History: None Reported Medications and Allergies Home Medications Medication Instructions Recorded Confirmed Type Fluticasone Nasal [place] [Flonase 1 spray NASAL DAILY 12/14/17 10/12/19 History Nasal [place]] Omeprazole 20 mg PO DAILY 12/14/17 10/12/19 History Estrogens, Conjugated [Premarin] 0.45 mg PO DAILY 10/12/19 10/12/19 History Fexofenadine HCl 180 mg PO DAILY 10/12/19 10/12/19 History Naproxen Sodium [Aleve] 220 mg PO BID 10/12/19 10/12/19 History Simvastatin [Zocor] 20 mg PO HS 10/12/19 10/12/19 History Allergies Allergy/AdvReac Type Severity Reaction Status Date / Time codeine AdvReac Nausea & Verified 10/12/19 11:42 Vomiting Physical Exam Vitals: Vital Signs Temp Pulse Pulse Resp BP BP Pulse Ox 10/12/19 13:35 97.7 F 70 12 146/87 99 10/12/19 12:48 76 18 153/94 98 10/12/19 10:59 83 18 154/88 99 10/12/19 10:58 84 16 154/98 100 10/12/19 10:41 98.1 F 77 16 169/87 99 Intake and Output 10/11/19 10/12/19 10/12/19 22:59 06:59 14:59 Other: Weight 74.843 kg Constitutional: No acute distress, conversant, pleasant Eyes:Anicteric sclerae, moist conjunctiva, no lid-lag, PERRLA, ENMT: Oropharynx clear, no erythema, exudates Neck: Supple, FROM, no masses, or JVD, No carotid bruits, No thyromegaly Lungs: Clear to auscultation, Clear to percussion, Normal respiratory effort, no accessory muscle use Cardiovascular: Heart regular in rate and rhythm, No murmurs, gallops, or rubs, No peripheral edema Abdominal: Soft, Nontender, no guarding, rebound or rigidity, Normoactive bowel sounds, No hepatomegaly, No splenomegaly, No palpable mass Skin: Normal temperature, tone, texture, turgor, no induration, No subcutaneous nodules, No rash, lesions, No ulcers Extremities: No digital cyanosis, No clubbing, Pedal pulses intact and symmetrical, Radial pulses intact and symmetrical, No calf tenderness Psychiatric: Alert and oriented to person, place and time, appropriate affect, intact judgement Neuro: Muscles Strength 5/5 in all 4 extremities, Sensation to light touch grossly present throughout, Cranial nerves II-XII grossly intact, no focal sensory deficits Results CBC & Chem 7: 10/12/19 10:54 10/12/19 10:54 Labs: Abnormal Lab Results - Last 24 Hours (Table) 10/12/19 Range/Units 10:54 Glucose 113 H (74-99) mg/dL Assessment and Plan Plan: Left bundle-branch block Unclear if new or old Telemetry Cycle troponins Cardiology consult Echocardiogram Consider stress testing, defer to cardiology Hyperlipidemia Chronic neck pain Stable Resume meds
[2019-10-12] MEDS: NAPROXEN 250 MG TAB PO SCH (20:36)
[2019-10-12] MEDS ORDERED: ATORVASTATIN 10 MG TAB PO SCH (21:00)
[2019-10-13] MEDS ORDERED: PANTOPRAZOLE 40 MG TABLET PO SCH (07:30)
--- NOTE | 2019-10-13 07:43 | ECHOF ---
Referral Reason:CP MEASUREMENTS -------- HEIGHT: 170.2 cm WEIGHT: 74.8 kg BP: 154/88 RVIDd: 2.5 cm (< 3.3) IVSd: 1.5 cm (0.6 - 1.1) LVIDd: 3.7 cm (3.9 - 5.3) LVPWd: 1.8 cm (0.6 - 1.1) IVSs: 1.9 cm LVIDs: 2.7 cm LVPWs: 2.0 cm LAESV Index (A-L): 22.23 ml/m Ao Diam: 2.7 cm (2.0 - 3.7) AV Cusp: 1.8 cm (1.5 - 2.6) LA Diam: 2.5 cm (2.7 - 3.8) MV EXCURSION: 10.412 mm (> 18.000) MV EF SLOPE: 59 mm/s (70 - 150) EPSS: 0.8 cm MV E Dani: 0.55 m/s MV DecT: 123 ms MV A Dani: 1.12 m/s MV E/A Ratio: 0.50 RAP: 5.00 mmHg RVSP: 15.06 mmHg FINDINGS -------- This was a technically good study. The left ventricular size is normal. There is moderate concentric left ventricular hypertrophy. O verall left ventricular systolic function is normal with, an EF between 55 - 60 %. The right ventricle is normal in size. The left atrial size is normal. Normal LA size by volume 22+/-6 ml/m2. The right atrial size is normal. The aortic valve is trileaflet and appears structurally normal. The mitral valve is normal. There is trace mitral regurgitation. The tricuspid valve appears structurally normal. Trace tricuspid regurgitation present. Right heather tricular systolic pressure is normal at < 35 mmHg. There is no pulmonic regurgitation present. The aortic root size is normal. Normal inferior vena cava with normal inspiratory collapse consistent with estimated right atrial pre ssure of 5 mmHg. There is no pericardial effusion. CONCLUSIONS -------- 1. This was a technically good study. 2. The left ventricular size is normal. 3. There is moderate concentric left ventricular hypertrophy. 4. Overall left ventricular systolic function is normal with, an EF between 55 - 60 %. 5. The right ventricle is normal in size. 6. The left atrial size is normal. 7. Normal LA size by volume 22+/-6 ml/m2. 8. The right atrial size is normal. 9. The aortic valve is trileaflet and appears structurally normal. 10. The mitral valve is normal. 11. There is trace mitral regurgitation. 12. The tricuspid valve appears structurally normal. 13. Trace tricuspid regurgitation present. 14. Right ventricular systolic pressure is normal at < 35 mmHg. 15. There is no pulmonic regurgitation present. 16. The aortic root size is normal. 17. Normal inferior vena cava with normal inspiratory collapse consistent with estimated right atrial pressure of 5 mmHg. 18. There is no pericardial effusion. LEARNING CENTER INSTRUCTOR: Zenaida Parnell RDCS
[2019-10-13 08:48] LABS: Cholesterol 171 mg/dL (<200); HDL Cholesterol 67 mg/dL (40-60); LDL Cholesterol,Calculated 83 mg/dL (0-99); Triglycerides 106 mg/dL (<150)
--- NOTE | 2019-10-13 08:48 | P.CNOR ---
History of Present Illness - HPI Consult date: 10/13/19 Consult reason: neck pain History of present illness: pleasant 59 yo female seen and examined at bedside. chief complaint of bilateral upper extremity heaviness. no specific numbness or tingling. no weakness. some neck pain over the past 3 days. denies injury or trauma. had seen chiropractor in past and had a treatment this week with mild rlief of neck symptoms, but no relief at arms. Was found in hospital to have an LBBB and is having cardiac workup. Review of Systems as per HPI. no change in gait, UE dexterity or strength Past Medical History Past Medical History: GERD/Reflux, Hyperlipidemia, Osteoarthritis (OA) Additional Past Medical History / Comment(s): Cervical pain, occasional headaches, cervical arthritis, MVP, hiatal hernia, diverticular disease, seasonal allergies. History of Any Multi-Drug Resistant Organisms: None Reported Past Surgical History: Breast Surgery, Hysterectomy Additional Past Surgical History / Comment(s): benign u/s guided core biopsy left breast 2004 and 2007, EGD, colonoscopy, sinus surgery. Past Anesthesia/Blood Transfusion Reactions: No Reported Reaction Smoking Status: Never smoker - Past Family History Father Family Medical History: Cancer Additional Family Medical History / Comment(s): Colon cancer, prostate and bladder cancer. Father is . Mother Family Medical History: No Reported History Additional Family Medical History / Comment(s): Mother is healthy. Medications and Allergies Home Medications Medication Instructions Recorded Confirmed Type Fluticasone Nasal [place] [Flonase 1 spray NASAL DAILY 12/14/17 10/12/19 History Nasal [place]] Omeprazole 20 mg PO DAILY 12/14/17 10/12/19 History Estrogens, Conjugated [Premarin] 0.45 mg PO DAILY 10/12/19 10/12/19 History Fexofenadine HCl 180 mg PO DAILY 10/12/19 10/12/19 History Naproxen Sodium [Aleve] 220 mg PO BID 10/12/19 10/12/19 History Simvastatin [Zocor] 20 mg PO HS 10/12/19 10/12/19 History Allergies Allergy/AdvReac Type Severity Reaction Status Date / Time codeine AdvReac Nausea & Verified 10/12/19 11:42 Vomiting Physical Examination Osteopathic Statement: *. No significant issues noted on an osteopathic structural exam other than those noted in the History and Physical/Consult. - C Spine: dermatomal strength & reflexes bilateral Shoulder strength: flexion: 5/5 (positive neck myofascial spasm. full UE strength. no UMN sighns) Results - Labs Labs: Abnormal Lab Results - Last 24 Hours (Table) 10/12/19 10/12/19 Range/Units 10:54 10:54 Glucose 113 H (74-99) mg/dL Creatine Kinase 160 H (30-135) U/L H & H 10/12/19 Range/Units 10:54 Hgb 14.3 (11.4-16.0) gm/dL Hct 44.6 (34.0-46.0) % Coagulation 10/12/19 Range/Units 10:54 INR 0.9 (<1.2) Result Diagrams: 10/12/19 10:54 10/12/19 10:54 - Diagnostic results CT scan - cervical: report reviewed, image reviewed (mod cervical DDD, no acute fx) Assessment and Plan Assessment: neck pain UE heaviness of uncertain etiiology, not a specific radicular pattern no acute neurologic loss cardiac LBBB without evidenc of Acute OH Plan: neck pain UE heaviness of uncertain etiiology, not a specific radicular pattern no acute neurologic loss cardiac LBBB without evidenc of Acute OH from spine standpoint the patient does not have specific radicular pattern at her Upper extremities.. She does not have any neurologic loss. her nec shows some myofascial strain and spasm. I do not have any acute plans for surgical interventiion and would reccomend conservative management ist NSAIDS and possibel oral steroid if okay with medicine service. it is okay for her to follow up with spine as out patient next week for possibel further workup and imaging.
[2019-10-13] MEDS ORDERED: AMINOPHYLLINE 500 MG/20 ML VIAL IV PRN (08:52)
[2019-10-13] MEDS ORDERED: CAFFEINE CITRATE 60 MG/3 ML VIAL IV PRN (08:52)
[2019-10-13] MEDS ORDERED: ASPIRIN 325 MG TAB PO SCH (09:00)
[2019-10-13] MEDS ORDERED: FLUTICASONE 50MCG/SPRAY NASAL 16GM NASAL SCH (09:00)
[2019-10-13] MEDS ORDERED: LORATADINE 10 MG TAB PO SCH (09:00)
[2019-10-13 09:06] VITALS: RESP 16
[2019-10-13] MEDS: NAPROXEN 250 MG TAB PO SCH (09:12)
--- NOTE | 2019-10-13 10:22 | P.CRDCN ---
History of Present Illness History of present illness: HISTORY OF PRESENTING ILLNESS This is a pleasant 59-year-old female past medical history significant for dyslipidemia, gastroesophageal reflux disease, osteoarthritis and chronic n molina discomfort. He denies prior history of coronary artery disease and is not follow in the office with tire man. We have been asked to see in consultation for chest pain. She is seen and examined resting comfortably sitting up in bed in no acute distress. She presented to the emergency depar tment yesterday with symptoms of bilateral arm heaviness and increased fatigue. She states this has been going on for the previous one week. She does work out daily by riding a stationary bike at home. She denies having exertional chest pain or shortness of breath. She states she has noticed increased heaviness in her arms last week prompting her to see her chiropractor. She did undergo an ad justment on Wednesday. She is feeling discomfort at the base of her neck that is relieved by ice pack. Heaviness in her arms has not subsided. She did write her stationary bike yesterday morning without incident however when she was attempting to get ready for her day and had to work she felt increasingly fatigued. Given the symptoms of arm pain and fatigue she came to the hospital for further evaluation. EKG on arrival revealed a left bundle branch block pattern. There is no old EKG for comparison. The patient is unsure if she has ever been told this in the past. Chest x-ray is negative for an acute cardiopulmonary process. CT of the head and cervical spine is negative for any acute intracranial abnormality, fracture or malignancy of the cervical spine. Moderate spondylitic changes C5-C7 and mild b/l neural foraminal stenosis C5-C6. Laboratory data reviewed, WBC 11.9, hemoglobin 12, platelets 266, d-dimer 0.96, sodium 138, potassium 4. CBC unremarkable, sedimentation rate 2, CRP less than 5, sodium 139, potassium 3.7, creatinine 0.59, magnesium 1.9, cardiac enzymes negative 3, NT proBNP 138, LDL 83 and HDL 67. Current daily cardiac medications include simvastatin 20 mg daily which was started in May per her PCP. REVIEW OF SYSTEMS At the time of my exam: CONSTITUTIONAL: Denies fever or chills. CARDIOVASCULAR: Denies chest pain, shortness of breath, orthopnea, PND or palpitations. RESPIRATORY: Denies cough. GASTROINTESTINAL: Denies abdominal pain, diarrhea, constipation, nausea or vomiting. MUSCULOSKELETAL: Complains of bilateral arm heaviness. NEUROLOGIC: Denies numbness, tingling or weakness. ENDOCRINE: Denies fatigue, weight change, polydipsia or polyurina. GENITOURINARY: Denies burning, hematuria or urgency with micturation. HEMATOLOGIC: Denies history of anemia or bleeding. PHYSICAL EXAMINATION Blood pressure 143/81 heart rate 69 afebrile and maintaining oxygen saturation on room air. CONSTITUTIONAL: No apparent distress. HEENT: Head is normocephalic. Pupils are equal, round. Sclerae anicteric. Mucous membranes of the mouth are moist. No JVD. No carotid bruit. CHEST EXAMINATION: Lungs are clear to auscultation. No chest wall tenderness is noted on palpation or with deep breathing. HEART EXAMINATION: Regular rate and rhythm. S1, S2 heard. No murmurs, gallops or rub. ABDOMEN: Soft, nontender. Positive bowel sounds. EXTREMITIES: 2+ peripheral pulses, no lower extremity edema and no calf tenderness. NEUROLOGIC EXAMINATION: Patient is awake, alert and oriented x3. ASSESSMENT Chest pain, atypical. An acute coronary event has been ruled out. Left bundle branch block Musculoskeletal neck strain Dyslipidemia PLAN An acute coronary event has been ruled out. Symptoms are atypical and seemed to be more related to musculoskeletal injury specifically of the neck. She has been seen in consult by orthopedic service and there is no plan for any acute intervention at this time his treating with NSAIDs and steroids. Patient underw ent echocardiogram that revealed no specific wall motion abnormalities and normal LV systolic function. She was given the option of undergoing stress test here today for in the office in 2 weeks when her last couple injury has improved. The patient prefers to have stress test done here today. We will schedule her for Persantine nuclear study today. If the stress test is normal she may be discharged to follow-up in the office with Dr. Marroquin. Thank you kindly for this consultation. Nurse Practitioner note has been reviewed, I agree with a documented findings and plan of care. Patient was seen and examined. Past Medical History Past Medical History: GERD/Reflux, Hyperlipidemia, Osteoarthritis (OA) Additional Past Medical History / Comment(s): Cervical pain, occasional headaches, cervical arthritis, MVP, hiatal hernia, diverticular disease, seasonal allergies. History of Any Multi-Drug Resistant Organisms: None Reported Past Surgical History: Breast Surgery, Hysterectomy Additional Past Surgical History / Comment(s): benign u/s guided core biopsy left breast 2004 and 2007, EGD, colonoscopy, sinus surgery. Past Anesthesia/Blood Transfusion Reactions: No Reported Reaction Smoking Status: Never smoker - Past Family History Father Family Medical History: Cancer Additional Family Medical History / Comment(s): Colon cancer, prostate and bladder cancer. Father is . Mother Family Medical History: No Reported History Additional Family Medical History / Comment(s): Mother is healthy. Medications and Allergies Home Medications Medication Instructions Recorded Confirmed Type Fluticasone Nasal [place] [Flonase 1 spray NASAL DAILY 12/14/17 10/12/19 History Nasal [place]] Omeprazole 20 mg PO DAILY 12/14/17 10/12/19 History Estrogens, Conjugated [Premarin] 0.45 mg PO DAILY 10/12/19 10/12/19 History Fexofenadine HCl 180 mg PO DAILY 10/12/19 10/12/19 History Naproxen Sodium [Aleve] 220 mg PO BID 10/12/19 10/12/19 History Simvastatin [Zocor] 20 mg PO HS 10/12/19 10/12/19 History Allergies Allergy/AdvReac Type Severity Reaction Status Date / Time codeine AdvReac Nausea & Verified 10/12/19 11:42 Vomiting Physical Exam Vitals: Vital Signs Temp Pulse Pulse Resp BP BP Pulse Ox 10/13/19 04:00 98.5 F 77 17 141/75 98 10/12/19 23:47 98.2 F 64 16 143/74 97 10/12/19 19:35 98.1 F 75 16 128/83 97 10/12/19 16:00 98.2 F 66 14 123/79 96 10/12/19 15:52 70 12 10/12/19 13:35 97.7 F 70 12 146/87 99 10/12/19 12:48 76 18 153/94 98 10/12/19 10:59 83 18 154/88 99 10/12/19 10:58 84 16 154/98 100 10/12/19 10:41 98.1 F 77 16 169/87 99 Intake and Output 10/12/19 10/13/19 10/13/19 22:59 06:59 14:59 Other: Voiding Method Toilet # Voids 1 1 Weight 74.843 kg Results 10/12/19 10:54 10/12/19 10:54 Cardiac Enzymes 10/12/19 10/12/19 10/12/19 Range/Units 10:54 10:54 17:10 AST 23 (14-36) U/L Troponin I <0.012 <0.012 (0.000-0.034) ng/mL 10/12/19 Range/Units 23:00 AST (14-36) U/L Troponin I <0.012 (0.000-0.034) ng/mL Coagulation 10/12/19 Range/Units 10:54 PT 9.7 (9.0-12.0) sec APTT 23.8 (22.0-30.0) sec CBC 10/12/19 Range/Units 10:54 WBC 8.8 (3.8-10.6) k/uL RBC 5.03 (3.80-5.40) m/uL Hgb 14.3 (11.4-16.0) gm/dL Hct 44.6 (34.0-46.0) % Plt Count 263 (150-450) k/uL Comprehensive Metabolic Panel 10/12/19 Range/Units 10:54 Sodium 139 (137-145) mmol/L Potassium 3.7 (3.5-5.1) mmol/L Chloride 105 (98-107) mmol/L Carbon Dioxide 25 (22-30) mmol/L BUN 9 (7-17) mg/dL Creatinine 0.59 (0.52-1.04) mg/dL Glucose 113 H (74-99) mg/dL Calcium 9.7 (8.4-10.2) mg/dL AST 23 (14-36) U/L ALT 17 (4-34) U/L Alkaline Phosphatase 61 (38-126) U/L Total Protein 7.4 (6.3-8.2) g/dL Albumin 4.6 (3.5-5.0) g/dL Current Medications Generic Name Dose Route Start Last Admin Trade Name Freq PRN Reason Stop Dose Admin Acetaminophen 650 mg 10/12/19 12:39 Tylenol Tab PO Q6HR PRN Mild Pain or Fever > 100.5 Aspirin 325 mg 10/13/19 09:00 Aspirin PO DAILY JAVIER Atorvastatin Calcium 10 mg 10/12/19 21:00 10/12/19 17:18 Lipitor PO 10 mg HS JAVIER Administration Fluticasone Propionate 1 spray 10/13/19 09:00 Flonase Nasal [place] NASAL DAILY [facility] Ibuprofen 400 mg 10/12/19 12:39 10/12/19 14:30 Motrin PO 400 mg Q6HR PRN Administration Mild Pain or Fever > 100.5 Loratadine 10 mg 10/13/19 09:00 Claritin PO DAILY [facility] Naloxone HCl 0.2 mg 10/12/19 12:39 Narcan IV Q2M PRN Opioid Reversal Naproxen 250 mg 10/12/19 21:00 10/12/19 20:36 Naprosyn PO 250 mg BID JAVIER Administration Pantoprazole Sodium 40 mg 10/13/19 07:30 Protonix PO AC-BRKFST [facility] Intake and Output 10/12/19 10/13/19 10/13/19 22:59 06:59 14:59 Other: Voiding Method Toilet # Voids 1 1 Weight 74.843 kg 10/12/19 10:54 10/12/19 10:54
[2019-10-13] MEDS ORDERED: DIPYRIDAMOLE IV ONE ×2 (11:00→12:00)
[2019-10-13] MEDS ORDERED: SODIUM CHLORIDE 0.9% IV ONE ×2 (11:00→12:00)
--- NOTE | 2019-10-13 11:43 | P.PN ---
Subjective Progress Note Date: 10/13/19 Principal diagnosis: Fatigue, bilateral arm heaviness This is a 59-year-old female, familiar to my service, known history of ALLERGIC rhinitis, GERD, hypercholesterolemia, degenerative joint disease, history of mitral valve prolapse, No significant past medical history otherwise. Her was recently diagnosed with glioblastoma, and the patient has been under significant amount of stress recently. Patient presented to the walk-in clinic complaining of weakness and fatigue, describes the weakness as mostly weakness in the upper extremities, tires out easily, and significantly fatigued. Workup was done including an EKG which came back showing left bundle branch block pattern. Patient had no previous history of coronary artery disease, no previous episodes of chest pain or angina. Patient stated to the urgent care physician that she has been fatigued and complaining of bilateral arm heaviness for the last few days. Has been seeing a chiropractor for severe back pain, and has not been improving much. Considering her abnormal EKG and her cousin seashell symptoms, patient was sent to the ER. CBC, complete metabolic profile, troponin, urinalysis, all came back relatively unremarkable. Patient was admitted for observation. In the meantime CT of the head and cervical spine was done, and it showed no acute intracranial abnormality it showed moderate spo ndylotic changes especially from C5 through C7 and mild bilateral neural foraminal stenosis at C5-C6. Patient denies any history of connective tissue disease process, no history of myositis, no history of connective tissue disease, history of hypo-or hyperthyroidism, and in no history of myasthenia gravis. On 10/13/2019 patient seen in follow-up in the observation unit, she is calm and comfortable, resting in bed, permanent pulse ox is 95%, she's been afebrile, hemodynamically she has been stable, feeling better today, no complaints of chest pain. Was seen in consultation by orthopedic surgery and her upper extremity heaviness is not thought to be related to radicular pattern or acute neurologic loss. Cardiac workup is in progress. No far patient had 3 sets of troponins less than 0.012, connective tissue workup including DAVID screen, ESR, CRP is negative, total CK was 160. Echocardiogram showed preserved LV function with an EF of 55-60%, trace mitral regurg, trace tricuspid regurg, no evidence of pulmonary hypertension, with right ventricular systolic pressure less than 35 mmHg. Myasthenia gravis workup is pending. Patient is scheduled for stress test today. Objective - Vital Signs Vital signs: Vital Signs Temp 98.1 F 10/13/19 08:00 Pulse 69 10/13/19 08:00 Resp 16 10/13/19 08:00 BP 143/81 10/13/19 08:00 Pulse Ox 95 10/13/19 08:00 Intake & Output 10/12/19 10/13/19 10/13/19 18:59 06:59 18:59 Weight 74.843 kg Other: Voiding Method Toilet # Voids 1 1 - Exam GENERAL EXAM: Alert, very pleasant, 59-year-old white female on room air, with a pulse ox of 95%, comfortable in no apparent distress. HEAD: Normocephalic/atraumatic. EYES: Normal reaction of pupils, equal size. Conjunctiva pink, sclera white. NOSE: Clear with pink turbinates. THROAT: No erythema or exudates. NECK: No masses, no JVD, no thyroid enlargement, no adenopathy. CHEST: No chest wall deformity. Symmetrical expansion. LUNGS: Equal air entry with no crackles, wheeze, rhonchi or dullness. CVS: Regular rate and rhythm, normal S1 and S2, no gallops, no murmurs, no rubs ABDOMEN: Soft, nontender. No hepatosplenomegaly, normal bowel sounds, no guard ing or rigidity. EXTREMITIES: No clubbing, no edema, no cyanosis, 2+ pulses and upper and lower extremities. MUSCULOSKELETAL: Muscle strength and tone normal. SPINE: No scoliosis or deformity SKIN: No rashes CENTRAL NERVOUS SYSTEM: Alert and oriented -3. No focal deficits, tone is normal in all 4 extremities. PSYCHIATRIC: Alert and oriented -3. Appropriate affect. Intact judgment and insight. - Labs CBC & Chem 7: 10/12/19 10:54 10/12/19 10:54 Labs: Abnormal Lab Results - Last 24 Hours (Table) 10/12/19 10/13/19 Range/Units 10:54 08:05 Creatine Kinase 160 H (30-135) U/L HDL Cholesterol 67 H (40-60) mg/dL Assessment and Plan Plan: Assessment: #1. Bilateral upper extremity muscle weakness, exact etiology is not clear, workup is in progress #2. Chronic cervical spine pain related to degenerative disc disease #3. Abnormal EKG, left bundle branch block, cardiac workup is in progress #4. Seasonal ALLERGIC rhinitis #5. Degenerative joint disease #6. Pure hypercholesterolemia #7. GERD without esophagitis Plan: Continue current treatment. Still awaiting results of the workup for myasthenia gravis, connective tissue disease workup has been negative. CPK is not significantly elevated. Orthopedic surgery consultation has been noted, and upper extremity muscle weakness is not thought to be related to radiculopathy. Cardiology workup is in progress, patient is scheduled for a stress test today, if it's negative then she will likely be discharged home and she can follow up with Dr. Green in the office in 7-10 days I performed a history & physical examination of the patient and discussed their management with my nurse practitioner, Christa Gimenez. I reviewed the nurse practitioner's note and agree with the documented findings and plan of care. Lung sounds are positive for clear breath sounds. The findings and the impre ssion was discussed with the patient. I attest to the documentation by the nurse practitioner. Time with Patient: Less than 30
[2019-10-13] MEDS ORDERED: AMINOPHYLLINE 500 MG/20 ML VIAL IV ONE (12:10)
[2019-10-13 13:44] VITALS: BP 134/88; PULSE 76; TEMP 97.6
--- NOTE | 2019-10-13 13:56 | NM ---
EXAMINATION TYPE: NM stress persantine cardiolit DATE OF EXAM: 10/13/2019 COMPARISON: NONE HISTORY: Chest pain, left bundle-branch block TECHNIQUE: After the intravenous administration of 10.96 mCi Tc 99m Sestamibi - Cardiolite resting S PECT images acquired 80 minutes post injection. The patient received 42.7 mg Persantine, 26.9 mCi Tc 99m Sestamibi - Stress images obtained 60 minute s post injection FINDINGS: Review of stress and rest SPECT images demonstrates decreased uptake along the anteroseptal left vent ricle more so on rest images than on stress images, there may be breast attenuation. Gated analysis shows normal wall motion with an estimated left ventricular ejection fraction of 45 %. IMPRESSION: No scintigraphic evidence for reversible ischemia. Additional findings above. Correlate.
--- NOTE | 2019-10-13 14:05 | P.DS ---
Providers Date of admission: 10/12/19 12:39 Expected date of discharge: 10/13/19 Attending physician: Mohan Ro MD Consults: 10/12/19 12:39 Consult Physician Routine Consulting Provider: Dorene Hernandez Consult Reason/Comments: Patient known to physician Do you want consulting provider notified?: Yes Consult Physician Routine Consulting Provider: Mable Perdomo Consult Reason/Comments: LBBB Do you want consulting provider notified?: Yes 10/12/19 14:57 Consult Physician Routine Consulting Provider: Elma Loving Consult Reason/Comments: Abnormal CT of the cervical spine Do you want consulting provider notified?: Yes Primary care physician: Dorene Hernandez [facility] Course: This is a 59-year-old female with known history of ALLERGIC rhinitis, GERD, hypercholesterolemia, degenerative joint disease, history of mitral valve prolapse, who presented to the emergency room with weakness involving both upper extremities. Patient was evaluated in the ER and 12-lead EKG showed evidence of left bundle branch block. No prior EKG available to compare. Patient denies any chest pain or known cardiac history. She was seen and evaluated by cardiology and underwent a cardiac stress test that was reported negative. Patient was also evaluated by spine surgery. CT of the head and cervical spine was done, and it showed no acute intracranial abnormality it showed moderate spondylotic changes especially from C5 through C7 and mild bilateral neural foraminal stenosis at C5-C6. No immediate intervention recommended at this time. Plan to follow-up in the office as directed. Patient was also seen by Dr. Green with concern about possible connective tissue disease. Lab work was sent and pending. DAVID negative. Normal CPK and ESR. Patient will follow-up in the office for further evaluation. Patient will be discharged home in a stable condition. For further details about this hospitalization please refer to the electronic chart. Patient Condition at Discharge: Stable Plan - Discharge Summary Discharge Rx Participant: No New Discharge Prescriptions: Continue Omeprazole 20 mg PO DAILY Fluticasone Nasal [place] [Flonase Nasal [place]] 1 spray NASAL DAILY Simvastatin [Zocor] 20 mg PO HS Naproxen Sodium [Aleve] 220 mg PO BID Fexofenadine HCl 180 mg PO DAILY Estrogens, Conjugated [Premarin] 0.45 mg PO DAILY Discharge Medication List Fluticasone Nasal [place] [Flonase Nasal [place]] 1 spray NASAL DAILY 12/14/17 [History] Omeprazole 20 mg PO DAILY 12/14/17 [History] Estrogens, Conjugated [Premarin] 0.45 mg PO DAILY 10/12/19 [History] Fexofenadine HCl 180 mg PO DAILY 10/12/19 [History] Naproxen Sodium [Aleve] 220 mg PO BID 10/12/19 [History] Simvastatin [Zocor] 20 mg PO HS 10/12/19 [History] Follow up Appointment(s)/Referral(s): Dorene Hernandez MD [Primary Care Provider] - 1-2 days Elma Loving DO [Doctor of Osteopathic Medicine] - 1 Week Augustin Marroquin MD [STAFF PHYSICIAN] - 2 Weeks Discharge Disposition: HOME SELF-CARE
--- NOTE | 2019-10-17 15:10 | EST ---
EXERCISE STRESS AGE: 59 SEX: F HT: 67" WT: 165 lbs. PROTOCOL: Persantine Cardiolite STAGE: DURATION OF EXERCISE: HEART RATE REST: 70 BLOOD PRESSURE REST: 141/81 MAXIMUM HEART RATE ACHIEVED: 104 MAXIMUM BLOOD PRESSURE: 136/81 85% MPHR: 138 100% MPHR: 162 INDICATION: Chest pain and left bundle branch block. Baseline EKG shows sinus rhythm with left bundle branch block. Patient was given intravenous Persantine over a period of 4 minutes as per protocol, did not have chest pain and the EKG changes are inconclusive. The patient was given intravenous aminophylline to reverse the Persantine. CONCLUSION: 1. Inconclusive EKG part of the stress test due to left bundle branch block. 2. Cardiolite portion of the stress test will be reported separately. MMODL / IJN: [id number] /
== END 2019-10-13 16:12 | disposition home or self-care (01) ==
LOC: EC 10:33 → 1SOBS 12:39
PROVIDERS: ADMIT Internal Medicine; ATTEND Internal Medicine
DX: I44.7 Left bundle-branch block, unspecified (principal); R07.89 Other chest pain; S16.1XXA Strain of muscle, fascia and tendon at neck level, initial encounter; M48.02 Spinal stenosis, cervical region; M47.892 Other spondylosis, cervical region; M50.30 Other cervical disc degeneration, unspecified cervical region; R53.83 Other fatigue; E78.00 Pure hypercholesterolemia, unspecified; E78.5 Hyperlipidemia, unspecified; J30.2 Other seasonal allergic rhinitis; K21.9 Gastro-esophageal reflux disease without esophagitis; M19.90 Unspecified osteoarthritis, unspecified site; I34.1 Nonrheumatic mitral (valve) prolapse; K44.9 Diaphragmatic hernia without obstruction or gangrene; K57.90 Diverticulosis of intestine, part unspecified, without perforation or abscess without bleeding; Z03.818 Encounter for observation for suspected exposure to other biological agents ruled out; Z79.899 Other long term (current) drug therapy; Z79.890 Hormone replacement therapy; Z79.1 Long term (current) use of non-steroidal anti-inflammatories (NSAID); Z88.5 Allergy status to narcotic agent; Z90.710 Acquired absence of both cervix and uterus; Z98.890 Other specified postprocedural states; Z80.0 Family history of malignant neoplasm of digestive organs; Z80.42 Family history of malignant neoplasm of prostate; Z80.52 Family history of malignant neoplasm of bladder; X58.XXXA Exposure to other specified factors, initial encounter
CPT/HCPCS: 93005 ×2; 99285; 36415; 93017; 93306; 83519; 83880; 80061; 80053; 85652; 82550; 83605; 83735; 84484; 85025; 85610; 85730; 86140; 81003; 83516; 86038; 71046; 72125; 70450; 78452; G0378 ×2; U0003; A9500; J1245; 86255

== ENCOUNTER 2019-10-13 23:22 | Emergency (ER) | payer BC ==
[2019-10-13] MEDS ORDERED: ASPIRIN 81 MG PO STA (23:37)
[2019-10-13] MEDS ORDERED: SODIUM CHLORIDE 0.9% 1,000 ML IV STA (23:37)
--- NOTE | 2019-10-14 00:36 | XR ---
EXAMINATION TYPE: XR chest 2V DATE OF EXAM: 10/14/2019 COMPARISON: 10/12/2019 HISTORY: Chest pain TECHNIQUE: FINDINGS: Heart and mediastinum are normal. Lungs are clear. Diaphragm is normal. Bony thorax appears normal. IMPRESSION: Normal chest. No change.
--- NOTE | 2019-10-14 01:18 | ED ---
General Adult HPI - General Chief complaint: Recheck/Abnormal Lab/Rx Stated complaint: Left arm and neck pain Time Seen by Provider: 10/13/19 23:37 Source: patient, family Mode of arrival: ambulatory Limitations: no limitations - History of Present Illness Initial comments: Emi is a pleasant 59-year-old female presents to the ER today for evaluation of not feeling well. Patient was seen and evaluated in the hospital on the , she is placed in observation unit and underwent a cardiac evaluation on the including a chemical stress test. Patient reports that all of those tests were well and she was discharged home. She states that she ate a small dinner went to bed early. She states that she woke up to use the restroom around 11 PM and just didn't feel right. She states that she felt a heaviness in her body felt like she could get nauseated but did not vomit, felt hot but she wasn't sweating diaphoretic or lightheaded. Considering that she had just undergone cardiac to she was concerned that there may be something wrong with her heart decided to come back to the hospital for evaluation. Patient also states that she does feel she is under a lot of psychological and emotional distress. Her was diagnosed with brain cancer last month ago, she is stressed about the cardiac workup she is undergoing and feels that she is sleep deprived from staying in the hospital last night. - Related Data Home Medications Medication Instructions Recorded Confirmed Fluticasone Nasal [place] [Flonase 1 spray NASAL DAILY 12/14/17 10/12/19 Nasal [place]] Omeprazole 20 mg PO DAILY 12/14/17 10/12/19 Estrogens, Conjugated [Premarin] 0.45 mg PO DAILY 10/12/19 10/12/19 Fexofenadine HCl 180 mg PO DAILY 10/12/19 10/12/19 Naproxen Sodium [Aleve] 220 mg PO BID 10/12/19 10/12/19 Simvastatin [Zocor] 20 mg PO HS 10/12/19 10/12/19 Previous Rx's Medication Instructions Recorded LORazepam [Ativan] 1 mg PO HS 3 Days #3 tab 10/14/19 LORazepam [Ativan] 1 mg PO HS 3 Days #3 tab 10/14/19 Allergies Allergy/AdvReac Type Severity Reaction Status Date / Time codeine AdvReac Nausea & Verified 10/13/19 23:28 Vomiting Review of Systems ROS Statement: Those systems with pertinent positive or pertinent negative responses have been documented in the HPI. ROS Other: All systems not noted in ROS Statement are negative. Past Medical History Past Medical History: GERD/Reflux, Hyperlipidemia, Osteoarthritis (OA) Additional Past Medical History / Comment(s): Cervical pain, occasional headac hes, cervical arthritis, MVP, hiatal hernia, diverticular disease, seasonal allergies. History of Any Multi-Drug Resistant Organisms: None Reported Past Surgical History: Breast Surgery, Hysterectomy Additional Past Surgical History / Comment(s): benign u/s guided core biopsy left breast 2004 and 2007, EGD, colonoscopy, sinus surgery. Past Anesthesia/Blood Transfusion Reactions: No Reported Reaction Past Psychological History: No Psychological Hx Reported Smoking Status: Never smoker - Past Family History Father Family Medical History: Cancer Additional Family Medical History / Comment(s): Colon cancer, prostate and bladder cancer. Father is . Mother Family Medical History: No Reported History Additional Family Medical History / Comment(s): Mother is healthy. General Exam - General Exam Comments Initial Comments: Physical Exam GENERAL: Patient is well-developed and well-nourished. Patient is nontoxic and well-hydrated and is in no distress. HENT: Normocephalic, Atraumatic. EYES: PERRL, EOMI PULMONARY: Unlabored respirations. No audible rales rhonchi or wheezing was noted. CARDIOVASCULAR: There is a regular rate and rhythm without any murmurs gallops or rubs. ABDOMEN: Soft and nontender with normal bowel sounds. SKIN: Skin is clear with no lesions or rashes and otherwise unremarkable. : Deferred NEUROLOGIC: Patient is alert and oriented x3. Moving all extremities spontaneously MUSCULOSKELETAL: Normal extremities with adequate strength and full range of motion. No lower extremity swelling or edema. No calf tenderness. PSYCHIATRIC: Normal psychiatric evaluation. Limitations: no limitations Course Vital Signs 10/13/19 10/14/19 10/14/19 23:25 01:44 02:39 Temperature 97.7 F 98.3 F Pulse Rate 91 89 74 Respiratory 16 17 16 Rate Blood Pressure 150/96 149/86 116/79 O2 Sat by Pulse 99 99 96 Oximetry EKG Findings - EKG Comments: EKG Findings:: EKG was obtained at 2336, EKG with a rate of 71 rhythm is sinus there is a left bundle branch block, MA 160, curious 144, QTC is [address] elevations or depressions evidence of ischemia or infarction. When this EKG was compared to EKG obtained on October 11 there is no change in morphology. Medical Decision Making - Medical Decision Making Patient was seen and evaluated history is obtained from the patient Cardiac workup was obtained, EKG was unchanged from previous, troponin was negative Results were discussed with patient who expresses relief. I did discuss the patient possibility that sleep deprivation psychological emotional stress could be contributing to her condition. Patient is agreement with this. Patient did receive 1 mg by mouth Ativan while in the emergency department reporting feeling much better. She had called her primary care earlier in the day to ask for medication to help with anxiety but was unable to schedule a follow-up visit for 2 weeks. Patient will be given 3 days of Ativan advised taking only if she needs help sleeping. Advised to contact primary care again on Wednesday for follow-up. - Lab Data Result diagrams: 10/14/19 01:05 10/14/19 00:20 Lab Results 10/14/19 10/14/19 10/14/19 Range/Units 00:20 00:20 01:05 WBC 7.0 (3.8-10.6) k/uL RBC 4.75 (3.80-5.40) m/uL Hgb 13.6 (11.4-16.0) gm/dL Hct 42.1 (34.0-46.0) % MCV 88.7 (80.0-100.0) fL MCH 28.6 (25.0-35.0) pg MCHC 32.3 (31.0-37.0) g/dL RDW 12.5 (11.5-15.5) % Plt Count 229 (150-450) k/uL Neutrophils % 70 % Lymphocytes % 20 % Monocytes % 6 % Eosinophils % 3 % Basophils % 0 % Neutrophils # 4.9 (1.3-7.7) k/uL Lymphocytes # 1.4 (1.0-4.8) k/uL Monocytes # 0.4 (0-1.0) k/uL Eosinophils # 0.2 (0-0.7) k/uL Basophils # 0.0 (0-0.2) k/uL PT (9.0-12.0) sec INR (<1.2) APTT (22.0-30.0) sec Sodium 136 L (137-145) mmol/L Potassium 4.6 (3.5-5.1) mmol/L Chloride 107 (98-107) mmol/L Carbon Dioxide 23 (22-30) mmol/L Anion Gap 6 mmol/L BUN 14 (7-17) mg/dL Creatinine 0.59 (0.52-1.04) mg/dL Est GFR (CKD-EPI)AfAm >90 (>60 ml/min/1.73 sqM) Est GFR (CKD-EPI)NonAf >90 (>60 ml/min/1.73 sqM) Glucose 109 H (74-99) mg/dL Calcium 9.0 (8.4-10.2) mg/dL Magnesium 1.9 (1.6-2.3) mg/dL Total Bilirubin 1.3 (0.2-1.3) mg/dL AST 43 H (14-36) U/L ALT 16 (4-34) U/L Alkaline Phosphatase 37 L (38-126) U/L Troponin I <0.012 (0.000-0.034) ng/mL NT-Pro-B Natriuret Pep pg/mL Total Protein 7.2 (6.3-8.2) g/dL Albumin 4.3 (3.5-5.0) g/dL 10/14/19 10/14/19 Range/Units 01:05 01:05 WBC (3.8-10.6) k/uL RBC (3.80-5.40) m/uL Hgb (11.4-16.0) gm/dL Hct (34.0-46.0) % MCV (80.0-100.0) fL MCH (25.0-35.0) pg MCHC (31.0-37.0) g/dL RDW (11.5-15.5) % Plt Count (150-450) k/uL Neutrophils % % Lymphocytes % % Monocytes % % Eosinophils % % Basophils % % Neutrophils # (1.3-7.7) k/uL Lymphocytes # (1.0-4.8) k/uL Monocytes # (0-1.0) k/uL Eosinophils # (0-0.7) k/uL Basophils # (0-0.2) k/uL PT 10.1 (9.0-12.0) sec INR 1.0 (<1.2) APTT 22.5 (22.0-30.0) sec Sodium (137-145) mmol/L Potassium (3.5-5.1) mmol/L Chloride (98-107) mmol/L Carbon Dioxide (22-30) mmol/L Anion Gap mmol/L BUN (7-17) mg/dL Creatinine (0.52-1.04) mg/dL Est GFR (CKD-EPI)AfAm (>60 ml/min/1.73 sqM) Est GFR (CKD-EPI)NonAf (>60 ml/min/1.73 sqM) Glucose (74-99) mg/dL Calcium (8.4-10.2) mg/dL Magnesium (1.6-2.3) mg/dL Total Bilirubin (0.2-1.3) mg/dL AST (14-36) U/L ALT (4-34) U/L Alkaline Phosphatase (38-126) U/L Troponin I (0.000-0.034) ng/mL NT-Pro-B Natriuret Pep 73 pg/mL Total Protein (6.3-8.2) g/dL Albumin (3.5-5.0) g/dL Disposition Clinical Impression: Fatigue Disposition: HOME SELF-CARE Condition: Stable Additional Instructions: Follow up with PCP, return to the ER she develop any chest pain, palpitations, shortness of breath or new or concerning symptoms Prescriptions: LORazepam [Ativan] 1 mg PO HS 3 Days #3 tab LORazepam [Ativan] 1 mg PO HS 3 Days #3 tab Is patient prescribed a controlled substance at d/c from ED?: Yes If prescribed controlled substance>3 days was MAPS reviewed?: Prescribed <3 Days Referrals: Dorene Hernandez MD [Primary Care Provider] - 1-2 days
[2019-10-14 01:22] LABS: ALT 16 U/L (4-34); African American GFR (CKD) >90 (>60 ml/min/1.73 sqM); Anion Gap 6 mmol/L; Blood Urea Nitrogen 14 mg/dL (7-17); Carbon Dioxide 23 mmol/L (22-30); Chloride 107 mmol/L (98-107); Non-African American GFR(CKD) >90 (>60 ml/min/1.73 sqM); Sodium 136 mmol/L (137-145)
[2019-10-14 01:22] LABS: Basophils % (A) 0 %; Eosinophils # (A) 0.2 k/uL (0-0.7); Eosinophils % (A) 3 %; HCT 42.1 % (34.0-46.0); HGB 13.6 gm/dL (11.4-16.0); Lymphocytes # (A) 1.4 k/uL (1.0-4.8); Lymphocytes % (A) 20 %; MCH 28.6 pg (25.0-35.0); MCHC 32.3 g/dL (31.0-37.0); MCV 88.7 fL (80.0-100.0); Mean Platelet Volume 7.6; Monocytes # (A) 0.4 k/uL (0-1.0); Monocytes % (A) 6 %; Neutrophils # (A) 4.9 k/uL (1.3-7.7); Neutrophils % (A) 70 %; Platelet Count 229 k/uL (150-450); RBC 4.75 m/uL (3.80-5.40); RDW 12.5 % (11.5-15.5)
[2019-10-14] MEDS ORDERED: LORazepam 1 MG TAB PO STA (01:27)
[2019-10-14 01:32] LABS: Partial Thromboplastin Time 22.5 sec (22.0-30.0); Prothrombin Time 10.1 sec (9.0-12.0)
[2019-10-14 01:33] LABS: Albumin 4.3 g/dL (3.5-5.0); Glucose 109 mg/dL (74-99); Magnesium 1.9 mg/dL (1.6-2.3); Potassium 4.6 mmol/L (3.5-5.1); Total Bilirubin 1.3 mg/dL (0.2-1.3); Total Protein 7.2 g/dL (6.3-8.2)
[2019-10-14 01:34] LABS: AST 43 U/L (14-36); Alkaline Phosphatase 37 U/L (38-126)
[2019-10-14 02:40] VITALS: BP 116/79; PULSE 74; RESP 16; TEMP 98.3
== END 2019-10-14 02:55 | disposition home or self-care (01) ==
LOC: EC 23:22
DX: R53.83 Other fatigue (principal); M79.602 Pain in left arm; M54.2 Cervicalgia; K21.9 Gastro-esophageal reflux disease without esophagitis; E78.5 Hyperlipidemia, unspecified; M47.892 Other spondylosis, cervical region; Z79.890 Hormone replacement therapy; Z79.1 Long term (current) use of non-steroidal anti-inflammatories (NSAID); Z79.899 Other long term (current) drug therapy; Z88.5 Allergy status to narcotic agent
CPT/HCPCS: 36415; 71046; 80053; 83735; 83880; 84484; 85025; 85610; 85730; 93005; 96360; 96361; 99284

== ENCOUNTER 2019-10-16 06:44 | Emergency (ER) | payer BC ==
[2019-10-16] MEDS ORDERED: ASPIRIN 81 MG PO STA (06:57)
[2019-10-16 06:58] VITALS: RESP 18
--- NOTE | 2019-10-16 07:07 | ED ---
Chest Pain HPI <Kurt Chavira - Last Filed: 10/16/19 08:32> - General Source: patient, RN notes reviewed Mode of arrival: ambulatory Limitations: no limitations <Yan Erazo - Last Filed: 10/16/19 08:36> - General Stated Complaint: Chest Pain Time Seen by Provider: 10/16/19 06:52 - History of Present Illness Initial Comments: This a 59-year-old female presents emergency Department chief complaint of chest discomfort. Patient states that she had some palpitations and mild left chest wall pain. Patient is visited: Sensation. Patient states she was recently admitted the hospital underwent echocardiogram, stress test but no acute findings. Patient states that she turned again the hospital for evaluation. She felt fatigued. She was discharged then and came back this morning due to persistent symptoms throughout the night. She has nausea vomiting or fevers chills no cough no shortness of breath. (Yan Erazo) - Related Data Home Medications Medication Instructions Recorded Confirmed Fluticasone Nasal [place] [Flonase 1 spray NASAL DAILY 12/14/17 10/12/19 Nasal [place]] Omeprazole 20 mg PO DAILY 12/14/17 10/12/19 Estrogens, Conjugated [Premarin] 0.45 mg PO DAILY 10/12/19 10/12/19 Fexofenadine HCl 180 mg PO DAILY 10/12/19 10/12/19 Naproxen Sodium [Aleve] 220 mg PO BID 10/12/19 10/12/19 Simvastatin [Zocor] 20 mg PO HS 10/12/19 10/12/19 Previous Rx's Medication Instructions Recorded LORazepam [Ativan] 1 mg PO HS 3 Days #3 tab 10/14/19 LORazepam [Ativan] 1 mg PO HS 3 Days #3 tab 10/14/19 Allergies Allergy/AdvReac Type Severity Reaction Status Date / Time codeine AdvReac Nausea & Verified 10/16/19 06:58 Vomiting Review of Systems ROS Other: All systems not noted in ROS Statement are negative. <Kurt Chavira - Last Filed: 10/16/19 08:32> ROS Other: All systems not noted in ROS Statement are negative. <Yan Erazo - Last Filed: 10/16/19 08:36> ROS Statement: Those systems with pertinent positive or pertinent negative responses have been documented in the HPI. Past Medical History Past Medical History: GERD/Reflux, Hyperlipidemia, Osteoarthritis (OA) Additional Past Medical History / Comment(s): Cervical pain, occasional headaches, cervical arthritis, MVP, hiatal hernia, diverticular disease, seasonal allergies. History of Any Multi-Drug Resistant Organisms: None Reported Past Surgical History: Breast Surgery, Hysterectomy Additional Past Surgical History / Comment(s): benign u/s guided core biopsy left breast 2004 and 2007, EGD, colonoscopy, sinus surgery. Past Anesthesia/Blood Transfusion Reactions: No Reported Reaction Past Psychological History: No Psychological Hx Reported Smoking Status: Never smoker Past Alcohol Use History: None Reported Past Drug Use History: None Reported - Past Family History Father Family Medical History: Cancer Additional Family Medical History / Comment(s): Colon cancer, prostate and bladder cancer. Father is . Mother Family Medical History: No Reported History Additional Family Medical History / Comment(s): Mother is healthy. <Yan Erazo - Last Filed: 10/16/19 08:36> General Exam Limitations: no limitations General appearance: alert, in no apparent distress Head exam: Present: atraumatic, normocephalic, normal inspection Eye exam: Present: normal appearance, PERRL, EOMI. Absent: scleral icterus, conjunctival injection, periorbital swelling ENT exam: Present: normal exam, mucous membranes moist Neck exam: Present: normal inspection. Absent: tenderness, meningismus, lymphadenopathy Respiratory exam: Present: normal lung sounds bilaterally. Absent: respiratory distress, wheezes, rales, rhonchi, stridor Cardiovascular Exam: Present: regular rate, normal rhythm, normal heart sounds. Absent: systolic murmur, diastolic murmur, rubs, gallop, clicks GI/Abdominal exam: Present: soft, normal bowel sounds. Absent: distended, tenderness, guarding, rebound, rigid Neurological exam: Present: alert, oriented X3, CN II-XII intact Skin exam: Present: warm, dry, intact, normal color. Absent: rash <Yan Erazo - Last Filed: 10/16/19 08:36> Course <Kurt Chavira - Last Filed: 10/16/19 08:32> Vital Signs 10/16/19 06:56 Temperature 98.2 F Pulse Rate 80 Respiratory 18 Rate Blood Pressure 161/87 O2 Sat by Pulse 99 Oximetry - Reevaluation(s) Reevaluation #1: 10/16/19 08:32 Patient reevaluated and reexamined by myself, Dr. Chavira. I do with PAs findings This includes diagnostic interpretation and treatment plan. Patient states she has discomfort of her left neck that does radiate towards the anterior shoulder region. Patient states symptoms did improve with Xanax. Case was discussed in detail with Dr. Gorman who is familiar with this patient. He recommends discharge and follow-up and less cardiology had difficult suggestions. Case was then also discussed with Dr. Perdomo who feels patient has atypical symptoms and negative stress test. He feels patient also can be discharged for follow-up. (Kurt Chavira) Chest Pain MDM <Yan Erazo - Last Filed: 10/16/19 08:36> - MDM 59-year-old female presents emergency Department with chief complaint of palpitations minimal chest discomfort and neck discomfort. Patient 4, which is negative at this time reviewed prior records. Case discussed with medicine and cardiology recommended patient to follow-up. This is felt to be atypical chest pain and not cardiac in nature. (Yan Erazo) Disposition <Kurt Chavira - Last Filed: 10/16/19 08:32> Is patient prescribed a controlled substance at d/c from ED?: No Time of Disposition: 08:36 <Yan Erazo - Last Filed: 10/16/19 08:36> Clinical Impression: Atypical chest pain, Palpitations, Neck pain Disposition: HOME SELF-CARE Condition: Stable Instructions (If sedation given, give patient instructions): Heart Palpitations (ED) Additional Instructions: Please return to the Emergency Department if symptoms worsen or any other concerns. Referrals: Dorene Hernandez MD [Primary Care Provider] - 1-2 days
[2019-10-16 07:08] LABS: Basophils % (A) 1 %; Eosinophils # (A) 0.2 k/uL (0-0.7); Eosinophils % (A) 3 %; HCT 43.8 % (34.0-46.0); HGB 14.3 gm/dL (11.4-16.0); Lymphocytes # (A) 1.2 k/uL (1.0-4.8); Lymphocytes % (A) 18 %; MCH 28.8 pg (25.0-35.0); MCHC 32.7 g/dL (31.0-37.0); MCV 88.2 fL (80.0-100.0); Mean Platelet Volume 7.5; Monocytes # (A) 0.3 k/uL (0-1.0); Monocytes % (A) 5 %; Neutrophils # (A) 4.7 k/uL (1.3-7.7); Neutrophils % (A) 71 %; Platelet Count 264 k/uL (150-450); RBC 4.97 m/uL (3.80-5.40); RDW 12.3 % (11.5-15.5); WBC 6.6 k/uL (3.8-10.6)
[2019-10-16 07:17] LABS: ALT 15 U/L (4-34); African American GFR (CKD) >90 (>60 ml/min/1.73 sqM); Albumin 4.3 g/dL (3.5-5.0); Anion Gap 8 mmol/L; Blood Urea Nitrogen 9 mg/dL (7-17); Calcium 9.2 mg/dL (8.4-10.2); Carbon Dioxide 24 mmol/L (22-30); Chloride 108 mmol/L (98-107); Glucose 145 mg/dL (74-99); Magnesium 1.9 mg/dL (1.6-2.3); Non-African American GFR(CKD) >90 (>60 ml/min/1.73 sqM); Potassium 3.6 mmol/L (3.5-5.1); Sodium 140 mmol/L (137-145); Total Bilirubin 0.5 mg/dL (0.2-1.3)
--- NOTE | 2019-10-16 07:18 | XR ---
EXAMINATION TYPE: XR chest 2V DATE OF EXAM: 10/16/2019 COMPARISON: 10/14/2019 HISTORY: 59-year-old female chest pain TECHNIQUE: PA and lateral views FINDINGS: Heart upper limits of normal in size. Aorta and pulmonary vasculature within normal limits. Lungs and pleural spaces are clear. IMPRESSION: No acute cardiopulmonary process.
[2019-10-16] MEDS ORDERED: KETOROLAC 30 MG/ML 1 ML VIAL IVP STA (07:21)
[2019-10-16 07:22] LABS: AST 19 U/L (14-36); D-Dimer 0.25 mg/L FEU (<0.60); Partial Thromboplastin Time 23.6 sec (22.0-30.0)
[2019-10-16 07:23] LABS: Alkaline Phosphatase 50 U/L (38-126)
[2019-10-16 09:05] VITALS: BP 155/81; PULSE 69; TEMP 98.4
== END 2019-10-16 09:05 | disposition home or self-care (01) ==
LOC: EC 06:44
DX: R07.89 Other chest pain (principal); R00.2 Palpitations; M54.2 Cervicalgia; R53.83 Other fatigue; K21.9 Gastro-esophageal reflux disease without esophagitis; E78.5 Hyperlipidemia, unspecified; Z79.51 Long term (current) use of inhaled steroids; Z79.899 Other long term (current) drug therapy; Z88.5 Allergy status to narcotic agent; Z91.048 Other nonmedicinal substance allergy status
CPT/HCPCS: 36415; 71046; 80053; 83690; 83735; 84484; 85025; 85379; 85610; 85730; 93005; 96374; 99285

== ENCOUNTER → 2020-01-02 | Outpatient (CLI) | payer BC ==
--- NOTE | 2020-01-02 14:28 | MM ---
Reason for exam: additional evaluation requested from prior study. Last mammogram was performed 3 months ago. History: Patient is postmenopausal and history of other cancer. Family history of breast cancer in paternal grandmother. Benign MG stereo VAD BX LT of the left breast, December 16, 2017. Benign ultrasound-guided core biopsy of the left breast, September 01, 2004. Benign ultrasound-guided core biopsy of the left breast, September 01, 2004. Taking estrogen for 6 years beginning at age 52. Physical Findings: Nurse did not find any significant physical abnormalities on exam. MG 3D Diag Mammo W/Cad [place] Bilateral CC and MLO view(s) were taken. Prior study comparison: October 02, 2019, left breast MG 3d diag mammo w/cad LT. December 29, 2018, left breast MG 3d work up w/cad LT. The breast tissue is heterogeneously dense. This may lower the sensitivity of mammography. Finding: There are typically benign round, grouped/clustered calcifications in the inner quadrant, middle, central position middle of the left breast. Previous mammotome biopsy in the left breast. There is a chronic nodularity in the left breast. There is no discrete abnormality. These results were verbally communicated with the patient and result sheet given to the patient on 01/02/20. ASSESSMENT: Benign, BI-RAD 2 RECOMMENDATION: Routine screening mammogram of both breasts in 1 year.
== END | disposition home or self-care (01) ==
LOC: RADMAMWWP 12:54
PROVIDERS: ATTEND Obstetrics & Gynecology
DX: R92.1 Mammographic calcification found on diagnostic imaging of breast (principal); Z80.3 Family history of malignant neoplasm of breast; Z78.0 Asymptomatic menopausal state
CPT/HCPCS: 77062; 77066

== ENCOUNTER → 2020-12-28 | Outpatient (CLI) | payer BC ==
[2020-12-28 12:18] LABS: Basophils # (A) 0.04 X 10*3/uL (0.00-0.10); Basophils % (A) 0.9 %; Eosinophils # (A) 0.25 X 10*3/uL (0.04-0.35); Eosinophils % (A) 5.5 %; HCT 42.2 % (37.2-46.3); HGB 13.9 g/dL (12.0-15.0); Lymphocytes # (A) 1.34 X 10*3/uL (0.90-5.00); Lymphocytes % (A) 29.5 %; MCH 29.3 pg (27.0-32.0); MCHC 32.9 g/dL (32.0-37.0); Mean Platelet Volume 10.5 fL (9.5-12.2); Monocytes # (A) 0.44 X 10*3/uL (0.20-1.00); Monocytes % (A) 9.7 %; Neutrophils # (A) 2.46 X 10*3/uL (1.80-7.70); Neutrophils % (A) 54.2 %; Platelet Count 268 X 10*3/uL (140-440); RBC 4.74 X 10*6/uL (4.10-5.20); RDW 11.9 % (11.5-14.5); WBC 4.54 X 10*3/uL (4.50-10.00)
[2020-12-28 15:35] LABS: African American GFR (CKD) 93.5 (60.0-200.0); Albumin 4.8 g/dL (3.80-4.90); Albumin/Globulin Ratio 2.29 (1.60-3.17); Anion Gap 8.4 mmol/L (4.00-12.00); BUN/Creat Ratio 16.25 Ratio (12.00-20.00); Carbon Dioxide 27.6 mmol/L (21.6-31.8); Chol/HDL Ratio 2.46; Globulin 2.1 g/dL (1.6-3.3); LDL Cholesterol,Calculated 87.8 mg/dL (0.0-131.0); Non-African American GFR(CKD) 80.7 (60.0-200.0); Potassium 4.4 mmol/L (3.5-5.5); Total Bilirubin 0.5 mg/dL (0.3-1.2); Total Protein 6.9 g/dL (6.2-8.2); VLDL Calculation 20.2 mg/dL (5.00-40.00)
== END | disposition home or self-care (01) ==
LOC: LABWHC1 08:00
PROVIDERS: ATTEND Internal Medicine
DX: Z00.00 Encounter for general adult medical examination without abnormal findings (principal)
CPT/HCPCS: 36415; 80053; 80061; 84439; 84443; 85025

== ENCOUNTER → 2021-02-14 | Outpatient (CLI) | payer BC ==
--- NOTE | 2021-02-17 09:59 | MM ---
Reason for exam: screening (asymptomatic). Last mammogram was performed 1 year and 1 month ago. History: Patient is postmenopausal and history of other cancer. Family history of breast cancer in paternal grandmother. Benign MG stereo VAD BX LT of the left breast, December 16, 2017. Benign ultrasound-guided core biopsy of the left breast, September 01, 2004. Benign ultrasound-guided core biopsy of the left breast, September 01, 2004. Taking estrogen for 6 years beginning at age 52. Physical Findings: A clinical breast exam by your physician is recommended on an annual basis and results should be correlated with mammographic findings. MG 3D Screening Mammo W/Cad Bilateral CC and MLO view(s) were taken. Prior study comparison: January 02, 2020, bilateral MG 3d diag mammo w/cad KERMIT. December 20, 2018, bilateral MG 3d screening mammo w/cad. The breast tissue is heterogeneously dense. This may lower the sensitivity of mammography. Biopsy clip left breast. ASSESSMENT: Benign, BI-RAD 2 RECOMMENDATION: Routine screening mammogram of both breasts in 1 year.
== END | disposition home or self-care (01) ==
LOC: RADMAMWWP 16:13
PROVIDERS: ATTEND Obstetrics & Gynecology
DX: Z12.31 Encounter for screening mammogram for malignant neoplasm of breast (principal); Z80.3 Family history of malignant neoplasm of breast
CPT/HCPCS: 77063; 77067

== ENCOUNTER 2021-07-11 03:50 | Emergency (ER) | payer BC ==
[2021-07-11 04:39] VITALS: RESP 18
[2021-07-11] MEDS ORDERED: MAG HYDROX/AL HYDROX/SIMETH 30 ML, HYOSCYAMINE ELIXIR 10 ML, LIDOCAINE VISCOUS 2% 10 ML PO STA ×3 (04:48)
--- NOTE | 2021-07-11 04:53 | ED ---
Chest Pain HPI - General Chief Complaint: Abdominal Pain Stated Complaint: Stomach pain, acid reflux Time Seen by Provider: 07/11/21 04:19 Source: patient Mode of arrival: ambulatory Limitations: no limitations - History of Present Illness Initial Comments: This patient is a 61-year-old woman who presents to be evaluated for which she believes is heartburn type pain. She states that she had an episode of gastroenteritis approximately a month ago and since that time she has been having burning aching pain from the epigastric area radiating up to the substernal area. Tonight it is worse than usual. She took an extra omeprazole and she also has taken some chewable antacid without having much relief. Her physician recommended she be seen at the emergency department. She has not had associated symptoms. No dyspnea, diaphoresis, palpitations or syncope. MD Complaint: chest pain Onset/Timin -: month(s) Onset: during rest Pain Location: substernal, epigastric Pain Radiation: none Severity: moderate Quality: other (Burning) Consistency: constant Improves With: nothing Worsens With: supine Anginal Symptoms: nausea Treatments Prior to Arrival: other (Omeprazole and antacid) - Related Data Home Medications Medication Instructions Recorded Confirmed Fluticasone Nasal [place] [Flonase 1 spray NASAL DAILY 12/14/17 10/12/19 Nasal [place]] Omeprazole 20 mg PO DAILY 12/14/17 10/12/19 Estrogens, Conjugated [Premarin] 0.45 mg PO DAILY 10/12/19 10/12/19 Fexofenadine HCl 180 mg PO DAILY 10/12/19 10/12/19 Naproxen Sodium [Aleve] 220 mg PO BID 10/12/19 10/12/19 Simvastatin [Zocor] 20 mg PO HS 10/12/19 10/12/19 Previous Rx's Medication Instructions Recorded LORazepam [Ativan] 1 mg PO HS 3 Days #3 tab 10/14/19 LORazepam [Ativan] 1 mg PO HS 3 Days #3 tab 10/14/19 LORazepam [Ativan] 1 mg PO TID 3 Days #9 tab 10/16/19 Sucralfate [Carafate] 1 gm PO BID #30 tab 07/11/21 Allergies Allergy/AdvReac Type Severity Reaction Status Date / Time codeine AdvReac Nausea & Verified 07/11/21 03:55 Vomiting Review of Systems ROS Statement: Those systems with pertinent positive or pertinent negative responses have been documented in the HPI. ROS Other: All systems not noted in ROS Statement are negative. Constitutional: Denies: fever, chills Respiratory: Denies: cough, dyspnea Cardiovascular: Reports: as per HPI, chest pain. Denies: palpitations, or thopnea, edema, syncope Gastrointestinal: Reports: nausea. Denies: vomiting, diarrhea, constipation, melena, hematochezia Genitourinary: Denies: dysuria, hematuria Musculoskeletal: Denies: back pain Skin: Denies: rash Neurological: Denies: headache, weakness EKG Findings - EKG Results: EKG: interpreted by ERMD, sinus rhythm (Rate 79 bpm) - Blocks, [place], Hypertrophy, ST Abn: AV and intraventricular conduction: left bundle branch block (fixed/intermittent, complete/incomplete) Past Medical History Past Medical History: GERD/Reflux, Hyperlipidemia, Osteoarthritis (OA) Additional Past Medical History / Comment(s): Cervical pain, occasional headaches, cervical arthritis, MVP, hiatal hernia, diverticular disease, seasonal allergies. History of Any Multi-Drug Resistant Organisms: None Reported Past Surgical History: Breast Surgery, Hysterectomy Additional Past Surgical History / Comment(s): benign u/s guided core biopsy left breast 2004 and 2007, EGD, colonoscopy, sinus surgery. Past Anesthesia/Blood Transfusion Reactions: No Reported Reaction Past Psychological History: No Psychological Hx Reported Smoking Status: Never smoker Past Alcohol Use History: None Reported Past Drug Use History: None Reported - Past Family History Father Family Medical History: Cancer Additional Family Medical History / Comment(s): Colon cancer, prostate and bladder cancer. Father is . Mother Family Medical History: No Reported History Additional Family Medical History / Comment(s): Mother is healthy. General Exam Limitations: no limitations General appearance: alert, in no apparent distress Head exam: Present: atraumatic, normocephalic Eye exam: Present: normal appearance. Absent: scleral icterus, conjunctival injection Neck exam: Present: normal inspection Respiratory exam: Present: normal lung sounds bilaterally. Absent: respiratory distress, wheezes, rales, rhonchi, stridor Cardiovascular Exam: Present: regular rate, normal rhythm, normal heart sounds. Absent: systolic murmur, diastolic murmur, rubs, gallop GI/Abdominal exam: Present: soft. Absent: distended, tenderness, guarding, rebound, rigid, mass Extremities exam: Present: normal inspection, normal capillary refill. Absent: pedal edema, calf tenderness Back exam: Present: normal inspection. Absent: CVA tenderness (R), CVA tenderness (L) Neurological exam: Present: alert Psychiatric exam: Present: anxious Skin exam: Present: warm, dry, intact, normal color. Absent: rash Course Vital Signs 07/11/21 07/11/21 07/11/21 03:51 04:37 06:11 Temperature 98.1 F Pulse Rate 85 81 73 Respiratory 22 18 18 Rate Blood Pressure 150/90 140/91 136/83 O2 Sat by Pulse 98 95 96 Oximetry Disposition Clinical Impression: Esophagitis Disposition: HOME SELF-CARE Condition: Good Prescriptions: Sucralfate [Carafate] 1 gm PO BID #30 tab Is patient prescribed a controlled substance at d/c from ED?: No Referrals: Dorene Hernandez MD [Primary Care Provider] - 1-2 days Fifi Marroquin MD [STAFF PHYSICIAN] - 1-2 days Arturo Banegas MD [Medical Doctor] - 1-2 days
[2021-07-11 05:35] LABS: ALT 21 U/L (4-34); AST 26 U/L (14-36); African American GFR (CKD) >90 (>60 ml/min/1.73 sqM); Albumin 4.3 g/dL (3.5-5.0); Alkaline Phosphatase 65 U/L (38-126); Amylase 52 U/L (30-110); Anion Gap 9 mmol/L; Blood Urea Nitrogen 10 mg/dL (7-17); Calcium 9.3 mg/dL (8.4-10.2); Carbon Dioxide 25 mmol/L (22-30); Chloride 104 mmol/L (98-107); Glucose 114 mg/dL (74-99); Lipase 67 U/L (23-300); Non-African American GFR(CKD) >90 (>60 ml/min/1.73 sqM); Potassium 3.7 mmol/L (3.5-5.1); Sodium 138 mmol/L (137-145); Total Bilirubin 0.6 mg/dL (0.2-1.3); Total Protein 6.9 g/dL (6.3-8.2)
[2021-07-11 05:38] LABS: Basophils # (A) 0.1 k/uL (0-0.2); Basophils % (A) 1 %; Eosinophils # (A) 0.1 k/uL (0-0.7); Eosinophils % (A) 3 %; HCT 43.3 % (34.0-46.0); HGB 14.5 gm/dL (11.4-16.0); Lymphocytes % (A) 21 %; MCH 29.9 pg (25.0-35.0); MCHC 33.4 g/dL (31.0-37.0); MCV 89.3 fL (80.0-100.0); Mean Platelet Volume 7.2; Monocytes # (A) 0.3 k/uL (0-1.0); Monocytes % (A) 6 %; Neutrophils # (A) 3.4 k/uL (1.3-7.7); Neutrophils % (A) 67 %; Platelet Count 285 k/uL (150-450); RBC 4.85 m/uL (3.80-5.40); RDW 12.6 % (11.5-15.5)
--- NOTE | 2021-07-11 06:44 | XR ---
EXAM: XR Chest, 1 View CLINICAL HISTORY: Abdominal pain. Reason: abdominal pain TECHNIQUE: Frontal view of the chest. COMPARISON: October 16, 2019 FINDINGS: Lungs: Unremarkable. No consolidation. Pleural space: Unremarkable. No pneumothorax. Heart: Unremarkable. No cardiomegaly. Mediastinum: Unremarkable. Bones/joints: Mild to moderate osteophytosis in the lower thoracic spine. IMPRESSION: No acute findings in the chest.
[2021-07-11] MEDS ORDERED: SUCRALFATE 1 GM TAB PO STA (07:02)
[2021-07-11 07:49] VITALS: BP 130/77; PULSE 78; TEMP 98
== END 2021-07-11 07:49 | disposition home or self-care (01) ==
LOC: EC 03:50
DX: K20.90 Esophagitis, unspecified without bleeding (principal); K21.9 Gastro-esophageal reflux disease without esophagitis; E78.5 Hyperlipidemia, unspecified; M19.90 Unspecified osteoarthritis, unspecified site; Z79.899 Other long term (current) drug therapy
CPT/HCPCS: 36415; 71045; 80053; 82150; 83690; 84484; 85025; 93005; 99284

== ENCOUNTER 2021-08-07 08:43 | Day surgery (SDC) | payer BC ==
[2021-08-05 13:23] VITALS: BMI 26.3
[~2021-08-07 08:43] MED LIST: LACTATED RINGERS 1,000 ML IV SCH; LIDOCAINE 1% (10MG/ML) FOR IV START INTRADERMA PRN
[2021-08-07 09:34] VITALS: RESP 16; TEMP 98.3
[2021-08-07] MEDS ORDERED: PROPOFOL 10 MG/ML 20 ML VIAL IV ONE (10:34)
--- NOTE | 2021-08-07 10:49 | P.GSHP ---
History of Present Illness H&P Date: 08/07/21 Chief Complaint: GERD Is a 7-year-old female with history of GERD. Patient rents today for EGD. Past Medical History Past Medical History: GERD/Reflux, Hyperlipidemia, Mitral Valve Prolapse (MVP), Musculoskeletal Disorder, Osteoarthritis (OA) Additional Past Medical History / Comment(s): Cervical & back pain, LBBB, hiatal hernia-pt. unaware of this hx., diverticular disease, seasonal allergies, stomach "bug" 6 weeks ago & since then GERD was increased, & was waking up @[facility] w/heartburn, since starting carafate & chnaging diet & cut back on Nsaids feels better History of Any Multi-Drug Resistant Organisms: None Reported Past Surgical History: Breast Surgery, Hysterectomy Additional Past Surgical History / Comment(s): benign u/s guided core biopsy left breast 2004 and 2007, EGD, colonoscopy, sinus surgery. Past Anesthesia/Blood Transfusion Reactions: No Reported Reaction Smoking Status: Never smoker - Past Family History Father Family Medical History: Cancer Additional Family Medical History / Comment(s): Colon cancer, prostate and bladder cancer. Father is . Mother Family Medical History: No Reported History Additional Family Medical History / Comment(s): Mother is healthy. Medications and Allergies Home Medications Medication Instructions Recorded Confirmed Type Fluticasone Nasal [place] [Flonase 1 spray NASAL DAILY 12/14/17 08/05/21 History Nasal [place]] Omeprazole 20 mg PO BID 12/14/17 08/05/21 History Estrogens, Conjugated [Premarin] 0.45 mg PO DAILY 10/12/19 08/05/21 History Fexofenadine HCl 180 mg PO DAILY 10/12/19 08/05/21 History Simvastatin [Zocor] 20 mg PO HS 10/12/19 08/05/21 History Sucralfate [Carafate] 1 gm PO BID #30 tab 07/11/21 08/05/21 Rx ALPRAZolam [Xanax] 0.25 mg PO TID 08/05/21 08/05/21 History L.acidoph,Paracasei, B.lactis 1 each PO DAILY 08/05/21 08/05/21 History [Probiotic] Multivitamins, Thera [Multivitamin 1 tab PO DAILY 08/05/21 08/05/21 History (formulary)] Zinc 50 mg PO DAILY 08/05/21 08/05/21 History Allergies Allergy/AdvReac Type Severity Reaction Status Date / Time codeine AdvReac Nausea & Verified 08/07/21 09:24 Vomiting Surgical - Exam Vital Signs Temp Pulse Resp BP Pulse Ox 98.3 F 67 16 153/82 98 08/07/21 09:33 08/07/21 09:33 08/07/21 09:33 08/07/21 09:33 08/07/21 09:33 - General well developed, well nourished, no distress - Eyes PERRL - ENT normal pinna - Neck no masses - Respiratory normal expansion - Cardiovascular Rhythm: regular - Abdomen Abdomen: soft, non tender Assessment and Plan Assessment: GERD. We'll perform EGD.
--- NOTE | 2021-08-07 10:56 | P.OP ---
Date of Procedure: 08/07/21 Preoperative Diagnosis: GERD Postoperative Diagnosis: Mild antral gastritis Small hiatal hernia Minimal esophagitis Procedure(s) Performed: EGD Anesthesia: MAC Surgeon: Fortino Diallo Pathology: other (Antrum, esophagus) Condition: stable Disposition: PACU Description of Procedure: The patient's placed on the endoscopy table in the lateral position. She received IV sedation. The gastro-/oropharynx passed in the esophagus into the stomach. Scope was then placed through the pylorus. The first and second portion of the duodenum appeared normal. The scope was then brought back the antrum this was mildly inflamed. A biopsies performed. Scope was retroflexed and remainder of the stomach appeared normal. There was a small hiatal hernia. The GE junction was at 39 cm. The distal esophagus was minimal inflamed. Biopsies performed. The proximal esophagus appeared normal. Scope withdrawn f or patient.
[2021-08-07 11:18] VITALS: BP 148/88; PULSE 60
== END 2021-08-07 11:56 | disposition home or self-care (01) ==
LOC: ORWHC2ENDO 08:43
PROVIDERS: ATTEND Surgery
DX: K29.50 Unspecified chronic gastritis without bleeding (principal); K21.00 Gastro-esophageal reflux disease with esophagitis, without bleeding; K44.9 Diaphragmatic hernia without obstruction or gangrene; E78.5 Hyperlipidemia, unspecified; I34.1 Nonrheumatic mitral (valve) prolapse; M19.90 Unspecified osteoarthritis, unspecified site; Z87.19 Personal history of other diseases of the digestive system; J30.9 Allergic rhinitis, unspecified; Z90.710 Acquired absence of both cervix and uterus; Z80.0 Family history of malignant neoplasm of digestive organs
CPT/HCPCS: 43239; 88305; J2704

== ENCOUNTER → 2022-02-17 | Outpatient (CLI) | payer BC ==
--- NOTE | 2022-02-17 09:45 | NM ---
Nuclear medicine hepatobiliary scan. HISTORY: Pain. DOSAGE: The patient received 8 ounces of Ensure Plus and 5.2 mCi of Technetium 99m Choletec. FINDINGS: There is normal hepatic extraction. The gallbladder is seen by 20 minutes. There is bilia ry to bowel clearance seen following 60 minutes. Ejection fraction is 55%. IMPRESSION: 1. No evidence of cholecystitis. Ejection fraction within normal limits. 2. Delayed biliary to bowel transit is a nonspecific finding
== END | disposition home or self-care (01) ==
LOC: RADNMMAIN 06:40
PROVIDERS: ATTEND Surgery
DX: K82.8 Other specified diseases of gallbladder (principal)
CPT/HCPCS: 78227; A9537; J2805

== ENCOUNTER → 2022-02-20 | Outpatient (CLI) | payer BC ==
--- NOTE | 2022-02-23 08:33 | MM ---
Reason for Exam: Screening (asymptomatic). Last screening mammogram was performed 12 month(s) ago. Patient History: Menarche at age 15. First Full-Term at age 27. Hysterectomy at age 40. Postmenopausal. Patient has history of breast feeding. Currently using Estrogen, beginning at age 52 for 6 years. 12/16/2017, Benign Core Biopsy on the left side. 09/01/2004, Benign Ultrasound-Guided Core Biopsy on the left side. 09/01/2004, Benign Ultrasound-Guided Core Biopsy on the left side. Paternal grandmother had breast cancer. Risk Values: Alea 5 year model risk: 2.3%. NCI Lifetime model risk: 10.6%. Prior Study Comparison: 10/19/1991 Screening Mammogram, Unknown. 06/29/2012 Bilateral Screening Mammogram, [facility]. 08/21/2014 Bilateral Screening Mammogram, [facility]. 10/15/2015 Bilateral Screening Mammogram, [facility]. 12/02/2017 Bilateral Screening Mammogram, [facility]. 12/20/2018 Bilateral Screening Mammogram, [facility]. 12/29/2018 Left Diagnostic Ultrasound, [facility]. 12/29/2018 Left Diagnostic Mammogram, [facility]. 10/02/2019 Left Diagnostic Mammogram, [facility]. 01/02/2020 Bilateral Diagnostic Mammogram, [facility]. 02/14/2021 Bilateral Screening Mammogram, [facility]. Tissue Density: The breast tissue is heterogeneously dense. This may lower the sensitivity of mammography. Findings: Analyzed By CAD. There is no suspicious group of microcalcifications or new suspicious mass in either breast. Overall Assessment: Benign, BI-RAD 2 Management: Screening Mammogram of both breasts in 1 year. A clinical breast exam by your physician is recommended on an annual basis and results should be correlated with mammographic findings. Electronically signed and approved by: Irvin Mitchell M.D. Radiologis
== END | disposition home or self-care (01) ==
LOC: RADMAMWWP 16:25
PROVIDERS: ATTEND Obstetrics & Gynecology
DX: Z12.31 Encounter for screening mammogram for malignant neoplasm of breast (principal)
CPT/HCPCS: 77063; 77067

== ENCOUNTER → 2023-02-22 | Outpatient (CLI) | payer BC ==
--- NOTE | 2023-02-23 11:57 | MM ---
Reason for Exam: Screening (asymptomatic). Last screening mammogram was performed 12 month(s) ago. Patient History: Menarche at age 15. First Full-Term at age 27. Hysterectomy at age 40. Postmenopausal. Patient has history of breast feeding. Currently using Estrogen, beginning at age 52 for 6 years. 12/16/2017, Benign Core Biopsy on the left side. 09/01/2004, Benign Ultrasound-Guided Core Biopsy on the left side. 09/01/2004, Benign Ultrasound-Guided Core Biopsy on the left side. Paternal grandmother had breast cancer. Risk Values: Alea 5 year model risk: 2.3%. NCI Lifetime model risk: 10.3%. Prior Study Comparison: 10/29/2016 Bilateral Screening Mammogram, [facility]. 12/02/2017 Bilateral Screening Mammogram, [facility]. 12/14/2017 Left Diagnostic Mammogram, [facility]. 07/15/2018 Left Diagnostic Mammogram, [facility]. 12/20/2018 Bilateral Screening Mammogram, [facility]. 01/02/2020 Bilateral Diagnostic Mammogram, [facility]. 02/14/2021 Bilateral Screening Mammogram, [facility]. 02/20/2022 Bilateral MG 3D screening mammo w/cad, [facility]. Tissue Density: The breast tissue is extremely dense which could obscure a lesion on mammography. Findings: Analyzed By CAD. There is no suspicious group of microcalcifications or new suspicious mass in either breast. Overall Assessment: Benign, BI-RAD 2 Management: Screening Mammogram of both breasts in 1 year. . Patient should continue monthly self-breast exams. A clinical breast exam by your physician is recommended on an annual basis. This exam should not preclude additional follow-up of suspicious palpable abnormalities. Note on Alea scores and lifetime risk: 1. A Alea score greater than 3% is considered moderate risk. If this is the case, consider specialist referral to assess eligibility for a risk reducing agent. 2. If overall lifetime risk for the development of breast cancer is 20% or higher, the patient may qualify for future screening with alternating mammogram and breast MRI. Electronically signed and approved by: Irvin Mitchell M.D. Radiologis
== END | disposition home or self-care (01) ==
LOC: RADMAMWWP 12:30
PROVIDERS: ATTEND Obstetrics & Gynecology
DX: Z12.31 Encounter for screening mammogram for malignant neoplasm of breast (principal); Z78.0 Asymptomatic menopausal state; Z80.3 Family history of malignant neoplasm of breast
CPT/HCPCS: 77063; 77067

== ENCOUNTER → 2023-08-03 | Outpatient (CLI) | payer BC ==
[2023-08-03 11:06] LABS: Basophils # (A) 0.04 X 10*3/uL (0.00-0.10); Basophils % (A) 0.5 %; Eosinophils # (A) 0.14 X 10*3/uL (0.04-0.35); Eosinophils % (A) 1.6 %; HCT 42.6 % (37.2-46.3); HGB 13.8 g/dL (12.0-15.0); Lymphocytes # (A) 1.86 X 10*3/uL (0.90-5.00); Lymphocytes % (A) 21.7 %; MCH 28.2 pg (27.0-32.0); MCHC 32.4 g/dL (32.0-37.0); MCV 86.9 FL (80.0-97.0); Mean Platelet Volume 9.8 FL (9.5-12.2); Monocytes % (A) 8.2 %; NRBC Per 100 WBC 0 X 10*3/uL (0.00-0.01); Neutrophils # (A) 5.82 X 10*3/uL (1.80-7.70); Neutrophils % (A) 67.8 %; Platelet Count 350 X 10*3/uL (140-440); RDW 13.2 % (11.5-14.5); WBC 8.58 X 10*3/uL (4.50-10.00)
[2023-08-03 11:45] LABS: ALT 16 U/L (8-44); AST 15 U/L (13-35); Albumin 4.4 g/dL (3.8-4.9); Albumin/Globulin Ratio 1.63 Ratio (1.60-3.17); Alkaline Phosphatase 94 U/L (41-126); BUN/Creat Ratio 17.14 Ratio (12.00-20.00); Calcium 9.8 mg/dL (8.7-10.3); Carbon Dioxide 26.5 mmol/L (21.6-31.8); Chloride 101 mmol/L (96-109); Chol/HDL Ratio 3.14 Ratio; Globulin 2.7 g/dL (1.6-3.3); Glucose 91 mg/dL (70-110); LDL Cholesterol,Calculated 118.6 mg/dL (0.0-131.0); Potassium 4.4 mmol/L (3.5-5.5); Sodium 140 mmol/L (135-145); T4, Free (Free Thyroxine) 1.12 ng/dL (0.80-1.80); Total Bilirubin 0.4 mg/dL (0.3-1.2); Total Protein 7.1 g/dL (6.2-8.2)
== END | disposition home or self-care (01) ==
LOC: LABWHC1 08:07
PROVIDERS: ATTEND Internal Medicine
DX: I10 Essential (primary) hypertension (principal); E78.5 Hyperlipidemia, unspecified; E55.9 Vitamin D deficiency, unspecified
CPT/HCPCS: 36415; 80053; 80061; 82306; 83036; 84439; 84443; 85025

== ENCOUNTER → 2024-02-07 | Outpatient (CLI) | payer BC | END | disposition home or self-care (01) | LOC: LABWHC1 16:08 | PROVIDERS: ATTEND Internal Medicine | DX: R79.89 Other specified abnormal findings of blood chemistry (principal) | CPT/HCPCS: 36415; 83036 ==

== ENCOUNTER → 2024-02-25 | Outpatient (CLI) | payer BC ==
--- NOTE | 2024-02-25 14:09 | BD ---
EXAMINATION TYPE: Axial Bone Density DATE OF EXAM: 02/25/2024 CLINICAL HISTORY: 64 years old Female. ICD-10 CODE: N951 [place] STATE Height: 65 in Weight: 181 lbs FRAX RISK QUESTIONS: Secondary Osteoporosis: 3. Menopause before 45: partial hysterectomy age 40 RISK FACTORS EXAM MEASUREMENTS: Bone mineral densitometry was performed using the [employer] [facility]. Bone mineral density as measured about the Lumbar spine is: ----- L1-L4(G/cm2): 1.692 T Score Values are as follows: ----- L1: 3.3 ----- L2: 2.8 ----- L3: 4.8 ----- L4: 5.5 ----- L1-L4: 4.3 Z Score Values are as follows: ----- L1: 4.2 ----- L2: 3.7 ----- L3: 5.7 ----- L4: 6.4 ----- L1-L4: 5.1 Bone mineral density has: no spine to compare to due to no l1-4 in 2012 Bone mineral density about the R hip (g/cm2): 1.222 Bone mineral density about the L hip (g/cm2): 1.154 T Score values are as follows: -----R Neck: 0.8 -----L Neck: 0.2 -----R Total: 1.7 -----L Total: 1.2 Z Score values are as follows: -----R Neck: 1.8 -----L Neck: 1.2 -----R Total: 2.4 -----L Total: 1.8 Bone mineral density has: Increased 0.7% since study of: 05/06/2012 FRAX%s: The graph provided illustrates a 6.1% chance for a major osteoporotic fx and a 0.1% chance fo r the hips probability for fx in 10 years time. IMPRESSION: Normal (Values between +1 and -1 indicate normal bone mass). Consider repeating this study in 5 year s or sooner if there is some new clinical indication. NOTE: T-SCORE=SD OF THE YOUNG ADULT MEAN. [facility], , 02/25/2024 2:07 PM
--- NOTE | 2024-02-28 11:24 | MM ---
Reason for Exam: Screening (asymptomatic). Last screening mammogram was performed 12 month(s) ago. Patient History: Menarche at age 15. First Full-Term at age 27. Hysterectomy at age 40. Postmenopausal. Patient has history of breast feeding. Currently using Estrogen, beginning at age 52 for 6 years. 12/16/2017, Benign Core Biopsy on the left side. 09/01/2004, Benign Ultrasound-Guided Core Biopsy on the left side. 09/01/2004, Benign Ultrasound-Guided Core Biopsy on the left side. Paternal grandmother had breast cancer. Risk Values: Alea 5 year model risk: 2.4%. NCI Lifetime model risk: 10.0%. Prior Study Comparison: 02/14/2021 Bilateral Screening Mammogram, [facility]. 02/20/2022 Bilateral MG 3D screening mammo w/cad, [facility]. 02/22/2023 Bilateral MG 3D screening mammo w/cad, [facility]. Tissue Density: The breasts are heterogeneously dense, which may obscure small masses. Findings: Analyzed By CAD. Right breast: There is no suspicious group of microcalcifications or new suspicious mass. Left breast: There is no suspicious group of microcalcifications or new suspicious mass. Overall Assessment: Negative, BI-RAD 1 Management: Screening Mammogram of both breasts in [address] [facility] will attempt to contact patient to return for supplemental views and ultrasound if indicated. Patient should continue monthly self-breast exams. A clinical breast exam by your physician is recommended on an annual basis. This exam should not preclude additional follow-up of suspicious palpable abnormalities. Note on Alea scores and lifetime risk: 1. A Alea score greater than 3% is considered moderate risk. If this is the case, consider specialist referral to assess eligibility for a risk reducing agent. 2. If overall lifetime risk for the development of breast cancer is 20% or higher, the patient may qualify for future screening with alternating mammogram and breast MRI. [facility], , 02/28/2024 11:21 AM. Electronically signed and approved by: Darryl Barajas DO
== END | disposition home or self-care (01) ==
LOC: RADMAMWWP 12:57
PROVIDERS: ATTEND Obstetrics & Gynecology
CPT/HCPCS: 77063; 77067; 77080

== ENCOUNTER → 2024-07-01 | Outpatient (CLI) | payer BC | END | disposition home or self-care (01) | LOC: LABWHC1 11:34 | PROVIDERS: ATTEND Internal Medicine | DX: R73.01 Impaired fasting glucose (principal) | CPT/HCPCS: 36415; 83036 ==

== ENCOUNTER → 2024-08-17 | Outpatient (CLI) | payer BC ==
--- NOTE | 2024-08-17 18:34 | CT ---
EXAMINATION TYPE: CT sinus wo con DATE OF EXAM: 08/17/2024 4:40 PM COMPARISON: Previous CT sinus study dated 07/27/2016. CLINICAL INDICATION: Female, 64 years old with history of J01.01 ACUTE RECURRENT MAXILLARY SINUSITIS; , Acute recurrent maxillary sinusitis. TECHNIQUE: Multiple thin axial images were obtained through the paranasal sinuses without the use of IV contrast. Additional coronal and sagittal reformatted images were submitted for evaluation. CT DLP: 471 mGycm, Automated exposure control for dose reduction was used. FINDINGS: Frontal sinuses: Patent. 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 Maxillary Infundibula([facility]): Clear, No Shaq cells identified. Ethmoid sinuses: Postsurgical changes Sphenoid sinuses: Patent. Sphenoethmoidal recesses appear grossly patent. Nasal Turbinates: Within normal limits. Mastoid air cells & middle ears: The air cells are clear. The middle ears are grossly unremarkable. Modified Soft tissues & Brain: Partially seen without gross abnormality. Globes are intact. Other: Pneumatization of the petrous apices. IMPRESSION: 1. Postsurgical changes without evidence of significant mucosal sinus disease. 2. The ostiomeatal units, frontonasal and sphenoethmoidal recesses are patent. [facility], , 08/17/2024 6:32 PM
== END | disposition home or self-care (01) ==
LOC: RADCTMAIN 16:06
PROVIDERS: ATTEND Otolaryngology
DX: J01.01 Acute recurrent maxillary sinusitis (principal); J34.89 Other specified disorders of nose and nasal sinuses; Z98.890 Other specified postprocedural states
CPT/HCPCS: 70486